=== PATIENT | female | born 1995 | race African-American/Black ===

== ENCOUNTER 2020-03-12 13:54 | Emergency (ER) | payer OTHER ==
--- NOTE | 2020-03-12 14:16 | ED Physician Documentation ---
PD HPI SKIN - Stated complaint Stated Complaint: LT ARMPIT PX - Chief complaint Chief Complaint: Wound - History obtained from History obtained from: Patient - History of Present Illness Timing - onset: How many days ago (several) Timing - duration: Days (several) Timing - details: Gradual onset, Still present Location: LUE Quality / character: Painful, Swelling. No: Draining Contributing factors: No: Insect bite /sting, Recent illness Similar symptoms before: Has not had sx before Review of Systems Constitutional: denies: Fever, Chills, Myalgias Nose: denies: Rhinorrhea / runny nose, Congestion Throat: denies: Sore throat Respiratory: denies: Cough Skin: reports: Lesions (just the single tender lump) Neurologic: denies: Focal weakness, Numbness PD PAST MEDICAL HISTORY - Past Medical History Past Medical History: No - Present Medications Home Medications: Ambulatory Orders Medication Instructions Recorded Confirmed Mupirocin 1 applic TP TID #15 g 03/12/20 Sulfamethox/Trimeth 800/160 1 each PO BID #14 tablet 03/12/20 [Bactrim Ds 800/160] - Allergies Allergies/Adverse Reactions: Allergies Allergy/AdvReac Type Severity Reaction Status Date / Time No Known Drug Allergies Allergy Verified 03/12/20 14:04 PD ED PE NORMAL - Vitals Vital signs reviewed: Yes - General General: Alert and oriented X 3, No acute distress, Well developed/nourished - Neck Neck: Supple, no meningeal sign, No adenopathy - Cardiac Cardiac: RRR, No murmur - Respiratory Respiratory: Clear bilaterally - Derm Derm: Normal color, Warm and dry - Extremities Extremities: Other (left axillary area with subcutaneous lump that is tender with fluctuance, redness and some soft tissue swelling around. It is about 3 cm diameter. Freely moving from underlying structures. ) - Neuro Neuro: No motor deficit, No sensory deficit Results - Vitals Vitals: Vital Signs - 24 hr 03/12/20 03/12/20 14:01 14:51 Temperature 36.9 C 36.9 C Heart Rate 75 72 Respiratory 18 16 Rate Blood Pressure 116/70 120/65 O2 Saturation 100 99 Oxygen O2 Source Room air Procedures - Abscess I&D (location) left axillary Preparation: Lidocaine 1%, With epi Incision: Incised with scalpel, Purulent drainage, Irrigated. No: Packed, Culture obtained Other: Pt tolerated well, Dressing applied, Antibiotic prescribed PD MEDICAL DECISION MAKING - ED course Complexity details: considered differential (simple axillary abscess with I&D. ), d/w patient Departure - Departure Disposition: 01 Home, Self Care Clinical Impression: Axillary abscess Condition: Stable Record reviewed to determine appropriate education?: Yes Instructions: ED Abscess IandD Follow-Up: LESLIE LORENZ DO [Primary Care Provider] - Prescriptions: Sulfamethox/Trimeth 800/160 [Bactrim Ds 800/160] 1 each PO BID #14 tablet Mupirocin 1 applic TP TID #15 g Comments: Warm moist compresses to the area and try to promote drainage by squeezing gently around the borders of the abscess. The incision hole should heal up on its own within 2 to 3 days. Continue some ibuprofen to 3 times a day and add Tylenol if needed for pain. Bactrim antibiotic twice daily for a week for the residual infection around the site. Mupirocin antibiotic ointment 2-3 times daily to the area as well. Recheck if not improving well over the next several days and resolved within the week. It should be a lot less painful with the pressure out and as the infection clears. The swelling around it may take a little bit longer to fully resolved. Discharge Date/Time: 03/12/20 14:52
[2020-03-12] MEDS ORDERED: HYDROcod/ACETAM 5/325 MG TABLET PO STA (14:27)
[2020-03-12] MEDS ORDERED: SULFAMETH/TRIMETH DS 800/160 MG TABLET PO STA (14:27)
[2020-03-12 14:52] VITALS: BP 120/65
== END 2020-03-12 14:52 | disposition home or self-care (01) ==
LOC: ED 13:54
DX: L02.412 Cutaneous abscess of left axilla (principal)
CPT/HCPCS: 10060; 99282; 99284; A9270

== ENCOUNTER 2020-06-22 20:47 | Emergency (ER) | payer OTHER ==
[2020-06-22 21:20] LABS: BILIRUBIN,URINE NEGATIVE (NEGATIVE); GLUCOSE, URINE (UA) NEGATIVE (NEGATIVE); KETONES,URINE (UA) NEGATIVE (NEGATIVE); LEUKOCYTE ESTERASE, URINE NEGATIVE (NEGATIVE); NITRITE,URINE NEGATIVE (NEGATIVE); OCCULT BLOOD,URINE NEGATIVE (NEGATIVE); PH,URINE 6.5 PH (5.0-7.5); PROTEIN,URINE NEGATIVE (NEGATIVE); UROBILINOGEN,URINE 0.2 (NORMAL) E.U./dL (NORMAL)
[2020-06-22 21:23] LABS: CLARITY,URINE CLEAR (CLEAR); HCG UR QUAL NEGATIVE
[2020-06-22] MEDS ORDERED: ONDANSETRON 4 MG/2 ML VIAL IVP STA (21:38)
[2020-06-22] MEDS ORDERED: SODIUM CHLORIDE 0.9% 1,000 ML IV STA (21:38)
--- NOTE | 2020-06-22 21:53 | ED Physician Documentation ---
PD HPI ABD PAIN - Stated complaint Stated Complaint: NAUSEA/CONSTIPATION/BACK PAIN - Chief complaint Chief Complaint: Abd Pain - History obtained from History obtained from: Patient - History of Present Illness Timing - onset: How many days ago (3) Timing - details: Abrupt onset, Waxing and waning Quality: Cramping Location: All over / everywhere Radiation: No: Chest, , Lower back, Left flank, Left shoulder, Other, Right flank, Right shoulder, Upper back Associated symptoms: Nausea, Constipation - Additional information Additional information: Several days ago she ate leftover food which she thinks caused her to be nauseated. She has not vomited. Additionally, she has not had a normal bowel movement in several days either. She was able to strain and pass a small amount of hard stool. It was nonbloody. She denies a history of intra-abdominal surgeries. She believes she has had a low-grade fever at times. She is not aware of any ill contacts. She is sexually active and has had unprotected intercourse. She is not sure if she is . She has had ovarian cysts in the past but otherwise denies any gynecologic concerns. She has never been before. She reports symptoms consistent with urinary frequency and urgency.Reports that she is currently under quarantine at the [facility]. They have tested her for Covid and she is awaiting the result. Review of Systems Constitutional: reports: Fever, Chills, Sweats GI: reports: Abdominal Pain, Nausea, Constipation. denies: Abdominal Swelling, Vomiting, Diarrhea, Hematemesis, Bloody / black stool, Reviewed and negative, Other : reports: Frequency, Hesitancy. 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 : None HEENT: None Psych: None Musculoskeletal: None Derm: None - Past Surgical History Past Surgical History: No - Present Medications Home Medications: Ambulatory Orders Medication Instructions Recorded Confirmed Mupirocin 1 applic TP TID #15 g 03/12/20 Sulfamethox/Trimeth 800/160 1 each PO BID #14 tablet 03/12/20 [Bactrim Ds 800/160] Ondansetron Odt [Zofran Odt] 4 mg TL Q6H PRN #10 tablet 06/22/20 - Allergies Allergies/Adverse Reactions: Allergies Allergy/AdvReac Type Severity Reaction Status Date / Time No Known Drug Allergies Allergy Verified 03/12/20 14:04 - Social History Does the pt smoke?: No Smoking Status: Never smoker Does the pt drink ETOH?: Yes Does the pt have substance abuse?: No - Immunizations Immunizations are current?: Yes - POLST Patient has POLST: No PD ED PE NORMAL - Vitals Vital signs reviewed: Yes - General General: No acute distress - HEENT HEENT: PERRL, Pharynx benign - Neck Neck: Supple, no meningeal sign - Cardiac Cardiac: RRR, No murmur, No gallop, No rub - Respiratory Respiratory: No respiratory distress, Clear bilaterally - Abdomen Abdomen: Normal bowel sounds, Soft, Non tender, Non distended, No organomegaly - Derm Derm: Warm and dry - Extremities Extremities: No deformity - Neuro Neuro: Alert and oriented X 3 - Psych Psych: Normal mood, Normal affect Results - Vitals Vitals: Vital Signs - 24 hr 06/22/20 06/22/20 06/22/20 20:50 21:11 22:14 Temperature 36.6 C 36.7 C Heart Rate 65 72 65 Respiratory 16 16 16 Rate Blood Pressure 121/64 125/75 116/79 O2 Saturation 97 100 65 L Oxygen O2 Source Room air - Labs Labs: Laboratory Tests 06/22/20 06/22/20 06/22/20 20:59 20:59 21:50 WBC 9.8 RBC 3.88 L Hgb 12.1 Hct 36.6 L MCV 94.3 MCH 31.2 H MCHC 33.1 RDW 12.9 Plt Count 384 MPV 10.2 Neut # (Auto) 5.5 Lymph # (Auto) 3.1 Marshall # (Auto) 0.9 Eos # (Auto) 0.2 Baso # (Auto) 0.1 Absolute Nucleated RBC 0.00 Nucleated RBC % 0.0 Sodium Potassium Chloride Carbon Dioxide Anion Gap BUN Creatinine Estimated GFR (MDRD) Glucose Calcium Total Bilirubin AST ALT Alkaline Phosphatase Total Protein Albumin Globulin Albumin/Globulin Ratio Lipase Urine Color YELLOW Urine Clarity CLEAR Urine pH 6.5 Ur Specific [place] 1.025 1.025 Urine Protein NEGATIVE Urine Glucose (UA) NEGATIVE Urine Ketones NEGATIVE Urine Occult Blood NEGATIVE Urine Nitrite NEGATIVE Urine Bilirubin NEGATIVE Urine Urobilinogen 0.2 (NORMAL) Ur Leukocyte Esterase NEGATIVE Ur Microscopic Review NOT INDICATED Urine Culture Comments NOT INDICATED Urine HCG, Qual NEGATIVE 06/22/20 21:50 WBC RBC Hgb Hct MCV MCH MCHC RDW Plt Count MPV Neut # (Auto) Lymph # (Auto) Marshall # (Auto) Eos # (Auto) Baso # (Auto) Absolute Nucleated RBC Nucleated RBC % Sodium 137 Potassium 3.7 Chloride 105 Carbon Dioxide 25 Anion Gap 7.0 BUN 13 Creatinine 0.7 Estimated GFR (MDRD) 125 Glucose 108 H Calcium 8.9 Total Bilirubin 0.5 AST 20 ALT 16 Alkaline Phosphatase 69 Total Protein 7.2 Albumin 3.6 Globulin 3.6 Albumin/Globulin Ratio 1.0 Lipase 36 Urine Color Urine Clarity Urine pH Ur Specific [place] Urine Protein Urine Glucose (UA) Urine Ketones Urine Occult Blood Urine Nitrite Urine Bilirubin Urine Urobilinogen Ur Leukocyte Esterase Ur Microscopic Review Urine Culture Comments Urine HCG, Qual PD MEDICAL DECISION MAKING - ED course ED course: The patient reported improvement in her symptoms after receiving IV Zofran and n ormal saline. We discussed the potential benefits and risks of CT and x-ray imaging. After this discussion, the patient declined to have these performed. She acknowledges the risk of a missed or erroneous diagnosis. However, she is feeling much better and is also reassured that she is not . We discussed home treatments for constipation. I suggested the use of Harriet-Colace, increased fluids and fiber in her diet and consideration of an OTC enema as needed. [facility] Departure - Departure Disposition: 01 Home, Self Care Clinical Impression: Dysuria, Nausea Constipation Qualifiers: Constipation type: unspecified constipation type Qualified Code(s): K59.00 - Constipation, unspecified Condition: Stable Record reviewed to determine appropriate education?: Yes Instructions: ED Constipation Ch Follow-Up: LESLIE LORENZ DO [Primary Care Provider] - Within 3 Days Prescriptions: Ondansetron Odt [Zofran Odt] 4 mg TL Q6H PRN #10 tablet PRN Reason: Nausea / Vomiting
[2020-06-22 21:56] LABS: BASOPHILS # (AUTO) 0.1 10^3/uL (0.0-0.1); BASOPHILS % (AUTO) 0.8 %; EOSINOPHILS # (AUTO) 0.2 10^3/uL (0.0-0.7); EOSINOPHILS % (AUTO) 1.6 %; HGB - HEMOGLOBIN 12.1 g/dL (12.0-16.0); LYMPHOCYTES # (AUTO) 3.1 10^3/uL (1.5-3.5); LYMPHOCYTES % (AUTO) 31.9 %; MEAN CORPUSCULAR HEMOGLOBIN 31.2 pg (27.0-31.0); MEAN CORPUSCULAR HGB CONC 33.1 g/dL (32.0-36.0); MEAN CORPUSCULAR VOLUME 94.3 fL (81.0-99.0); MEAN PLATELET VOLUME 10.2 fL (7.9-10.8); MONOCYTES # (AUTO) 0.9 10^3/uL (0.0-1.0); MONOCYTES % (AUTO) 8.8 %; NEUTROPHILS # (AUTO) 5.5 10^3/uL (1.5-6.6); NEUTROPHILS % (AUTO) 56.5 %; PLT - PLATELET COUNT 384 10^3/uL (130-450); RED BLOOD COUNT 3.88 10^6/uL (4.20-5.40); RED CELL DISTRIBUTION WIDTH 12.9 % (12.0-15.0); WHITE BLOOD COUNT 9.8 x10^3/uL (4.8-10.8)
[2020-06-22 22:09] LABS: ALBUMIN 3.6 g/dL (3.2-5.5); BILIRUBIN,TOTAL 0.5 mg/dL (0.2-1.0); CALCIUM 8.9 mg/dL (8.5-10.3); CREATININE 0.7 mg/dL (0.4-1.0); TOTAL PROTEIN 7.2 g/dL (6.7-8.2)
[2020-06-22 22:15] VITALS: BP 116/79
== END 2020-06-22 22:42 | disposition home or self-care (01) ==
LOC: ED 20:47
DX: R30.0 Dysuria (principal); R11.0 Nausea; K59.00 Constipation, unspecified
CPT/HCPCS: 36415; 80053; 81001; 81003; 81025; 83690; 85025; 87086; 96374; 99284

== ENCOUNTER 2020-07-07 14:46 | Emergency (ER) | payer OTHER ==
--- NOTE | 2020-07-07 15:11 | ED Physician Documentation ---
History of Present Illness - Stated complaint Stated Complaint: FLU SX - History obtained from History obtained from: Patient - History of Present Illness Timing: Today Pain level max: 0 Pain level now: 0 - Additonal information Additional information: 25-year-old female presents to the emergency department stating that she is concerned that she was possibly exposed to Covid. She states that she has seasonal allergies and has had some nasal congestion. No fevers. No cough. No chills. No chest pain. No abdominal pain. No nausea or vomiting. Nothing makes it better or worse. 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 : None HEENT: None Psych: None Musculoskeletal: None Derm: None - Past Surgical History Past Surgical History: No - Present Medications Home Medications: Ambulatory Orders Medication Instructions Recorded Confirmed Mupirocin 1 applic TP TID #15 g 03/12/20 Sulfamethox/Trimeth 800/160 1 each PO BID #14 tablet 03/12/20 [Bactrim Ds 800/160] Ondansetron Odt [Zofran Odt] 4 mg TL Q6H PRN #10 tablet 06/22/20 - Allergies Allergies/Adverse Reactions: Allergies Allergy/AdvReac Type Severity Reaction Status Date / Time No Known Drug Allergies Allergy Verified 07/07/20 15:14 - Social History Does the pt smoke?: No Smoking Status: Never smoker Does the pt drink ETOH?: Yes Does the pt have substance abuse?: No - Immunizations Immunizations are current?: Yes - POLST Patient has POLST: No PD ED PE NORMAL - Vitals Vital signs reviewed: Yes - General General: Alert and oriented X 3, No acute distress - HEENT HEENT: Moist mucous membranes - Neck Neck: Supple, no meningeal sign - Respiratory Respiratory: No respiratory distress - Derm Derm: Warm and dry - Neuro Neuro: Alert and oriented X 3 - Psych Psych: Normal mood, Normal affect Results - Vitals Vitals: Vital Signs - 24 hr 07/07/20 15:05 Temperature 37.2 C Heart Rate 86 Respiratory 17 Rate Blood Pressure 144/92 H O2 Saturation 98 Oxygen O2 Source Room air PD MEDICAL DECISION MAKING - ED course Complexity details: considered differential, d/w patient ED course: Covid testing was performed. Patient is very well-appearing, nontoxic. Afebrile. No hypoxia. No respiratory distress. We will have her follow-up with her doctor for further care as needed. She will self quarantine pending results of her Covid test. Patient counseled regarding signs and symptoms for which I believe and urgent re-evaluation would be necessary. Patient with good understanding of and agreement to plan and is comfortable going home at this time This document was made in part using voice recognition software. While efforts are made to proofread this document, sound alike and grammatical errors may occur. Departure - Departure Disposition: 01 Home, Self Care Clinical Impression: URI (upper respiratory infection) Qualifiers: URI type: unspecified viral URI Qualified Code(s): J06.9 - Acute upper respiratory infection, unspecified Condition: Good Instructions: ED URI Viral Follow-Up: LESLIE LORENZ DO [Primary Care Provider] - As Needed Comments: You have a Covid test pending. You need to self quarantine until the result is done and negative. Do not leave your house. Do not get near anybody. The results should be done in 48 to 72 hours. We will call with a positive result, the fastest way to get a negative result for confirmation though is to go to the hospital website at [email or web address], click on the my [facility] tab and sign up for the patient portal. If any friends or family get sick and would like to have a Covid test done, but do not have signs or symptoms that would necessitate being hospitalized, we encourage testing through our coronavirus swabbing station, call [phone] to schedule an appointment.
[2020-07-07 15:14] VITALS: BP 144/92
== END 2020-07-07 15:27 | disposition home or self-care (01) ==
LOC: ED 14:46
DX: U07.1 COVID-19 (principal); J06.9 Acute upper respiratory infection, unspecified
CPT/HCPCS: 99282; 99283

== ENCOUNTER 2020-09-18 20:04 | Emergency (ER) | payer OTHER ==
--- NOTE | 2020-09-18 20:19 | ED Physician Documentation ---
PD HPI HEAD INJURY - Stated complaint Stated Complaint: HEAD INJ - Chief complaint Chief Complaint: Trauma Hd/Nk - History obtained from History obtained from: Patient - History of Present Illness Mechanism of head injury: Fell Where head injury occurred: Home Timing - onset: How many days ago (5) Location of injury: Left, Back Quality of pain: Throbbing, Aching Associated symptoms: AMS (felt briefly dazed at the time, but has had continued tenderness of scalp, some headache left side, and feeling of lightheadedness, forgetfulness. Thought symptoms would dissipate in a day or two, but has continued. Called Nurse advise line and advised to come to ER.). No: LOC Symptoms improve with: Rest, Other (has not taken any meds for this.) Symptoms worsen with: Palpation Contributing factors: No: Anticoagulated Similar symptoms before: Has not had sx before Recently seen: Not recently seen Review of Systems Constitutional: denies: Fever, Myalgias Nose: denies: Rhinorrhea / runny nose, Congestion Throat: denies: Sore throat Respiratory: denies: Cough GI: denies: Nausea, Vomiting Neurologic: reports: Confused (forgetful and trouble concentrating at times), Headache. 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 : None HEENT: None Psych: None Musculoskeletal: None Derm: None - Past Surgical History Past Surgical History: No - Present Medications Home Medications: Ambulatory Orders Medication Instructions Recorded Confirmed HYDROcod/ACETAM 5/325 [Ell[place] 5/325] 1 ea PO Q6H PRN #10 tablet 09/18/20 Ibuprofen [Motrin] 600 mg PO TID PRN #20 tab 09/18/20 - Allergies Allergies/Adverse Reactions: Allergies Allergy/AdvReac Type Severity Reaction Status Date / Time No Known Drug Allergies Allergy Verified 09/18/20 20:12 - Social History Does the pt smoke?: No Smoking Status: Never smoker Does the pt drink ETOH?: Yes Does the pt have substance abuse?: No - Immunizations Immunizations are current?: Yes - POLST Patient has POLST: No Results - Vitals Vitals: Vital Signs - 24 hr 09/18/20 09/18/20 20:11 22:09 Temperature 37 C 36.8 C Heart Rate 74 67 Respiratory 18 16 Rate Blood Pressure 120/71 135/70 H O2 Saturation 100 100 Oxygen O2 Source Room air - Rads (name of study) head CT Radiology: Prelim report reviewed (no acute process. ), See rad report PD MEDICAL DECISION MAKING - ED course Complexity details: considered differential (Sounds mild concussive symptoms. Given the duration of 5 days now, I would feel the patient fits for criteria for CT scan. Otherwise can also try some NSAIDs and medicine for pain.), d/w patient Departure - Departure Disposition: 01 Home, Self Care Clinical Impression: Accidental fall Qualifiers: Encounter type: initial encounter Qualified Code(s): W19.XXXA - Unspecified fal l, initial encounter Head contusion Qualifiers: Encounter type: initial encounter Contusion of head detail: scalp Qualified Code(s): S00.03XA - Contusion of scalp, initial encounter Mild concussion Qualifiers: Encounter type: initial encounter Loss of consciousness presence/duration: without LOC Qualified Code(s): S06.0X0A - Concussion without loss of consciousness, initial encounter Condition: Stable Record reviewed to determine appropriate education?: Yes Instructions: ED Concussion Follow-Up: LESLIE LORENZ DO [Primary Care Provider] - Prescriptions: Ibuprofen [Motrin] 600 mg PO TID PRN #20 tab PRN Reason: Pain HYDROcod/ACETAM 5/325 [Ellsworth 5/325] 1 ea PO Q6H PRN #10 tablet PRN Reason: Pain Comments: Your CT scan does not show any signs of bleeding or fractures tumors or swelling. Your symptoms would be consistent with a mild concussion. Typically this only lasts for a couple of days with a mild injury though at times it can even be a few weeks in duration. Light activity is okay. Use some ibuprofen with food 3 times a day for the next 3 to 5 days. To that add Tylenol every 4-6 hours if needed for pain. Add hydrocodone if needed for worse pain. Recheck if still not improved over the next 3 to 4 days. Discharge Date/Time: 09/18/20 22:14
[2020-09-18] MEDS ORDERED: KETOROLAC 30 MG/ML VIAL IM STA (20:44)
[2020-09-18] MEDS ORDERED: ACETAMINOPHEN 325 MG TABLET PO STA (21:31)
[2020-09-18] MEDS ORDERED: HYDROcod/ACET 5/325 Prepack 4 PO STA (21:32)
--- NOTE | 2020-09-18 21:42 | CT Report ---
PROCEDURE: HEAD WO INDICATIONS: head injury 5 days ago; persistent headache TECHNIQUE: Noncontrast 4.5 mm thick angled axial sections acquired from the foramen magnum to the vertex. For r adiation dose reduction, the following was used: automated exposure control, adjustment of mA and/or kV according to patient size. COMPARISON: None. FINDINGS: Image quality: Excellent. CSF spaces: Basal cisterns are patent. No extra-axial fluid collections. Ventricles are normal in size and shape. Brain: No midline shift. No intracranial masses or hemorrhage. Dickinson-white matter interface is norm al. Skull and face: Calvarium and visualized facial bones are intact, without suspicious lesions. Sinuses: Visualized sinuses and mastoids are clear. IMPRESSION: 1. No acute intracranial process. Reviewed by: Holly Bailey MD on 09/18/2020 9:40 PM PST Approved by: Holly Bailey MD on 09/18/2020 9:40 PM [facility] Station ID: [id number]
[2020-09-18 22:09] VITALS: BP 135/70
== END 2020-09-18 22:14 | disposition home or self-care (01) ==
LOC: ED 20:04
DX: S06.0X0A Concussion without loss of consciousness, initial encounter (principal); S00.03XA Contusion of scalp, initial encounter; W18.30XA Fall on same level, unspecified, initial encounter; Y92.009 Unspecified place in unspecified non-institutional (private) residence as the place of occurrence of the external cause
CPT/HCPCS: 70450; 96372; 99284; A9270

== ENCOUNTER 2020-12-31 08:00 | Outpatient (CLI) | payer OTHER ==
[2021-01-01 10:05] LABS: MUDS CUTOFF CONCENTRATIONS CUTOFF CONC BELOW:
[2021-01-01 10:09] LABS: BILIRUBIN,URINE NEGATIVE (NEGATIVE); GLUCOSE, URINE (UA) NEGATIVE (NEGATIVE); KETONES,URINE (UA) NEGATIVE (NEGATIVE); LEUKOCYTE ESTERASE, URINE NEGATIVE (NEGATIVE); NITRITE,URINE NEGATIVE (NEGATIVE); OCCULT BLOOD,URINE NEGATIVE (NEGATIVE); PH,URINE 6.5 PH (5.0-7.5); PROTEIN,URINE NEGATIVE (NEGATIVE); UROBILINOGEN,URINE 0.2 (NORMAL) E.U./dL (NORMAL)
[2021-01-01 10:10] LABS: CLARITY,URINE SL. CLOUDY (CLEAR)
[2021-01-01 10:14] LABS: AMORPHOUS SEDIMENT,UR Marked /LPF; BACTERIA,URINE Rare /HPF (None Seen); RBC,URINE 0-5 /HPF (0-5); SQUAMOUS EPITHELIAL CELL,UR RARE Squamous (<= Few); WBC,URINE 0-3 /HPF (0-5)
[2021-01-01 10:31] LABS: AMPHETAMINE SCREEN,URINE NEGATIVE (NEGATIVE); BARBITURATE SCREEN,UR NEGATIVE (NEGATIVE); BENZODIAZEPINES SCREEN, URINE NEGATIVE (NEGATIVE); COCAINE SCREEN URINE NEGATIVE (NEGATIVE); METHADONE SCREEN, URINE NEGATIVE (NEGATIVE); METHAMPHETAMINES SCREEN, URINE NEGATIVE (NEGATIVE); OPIATE SCREEN, URINE NEGATIVE (NEGATIVE); OXYCODONE SCREEN, URINE NEGATIVE (NEGATIVE); PROPOXYPHENE SCREEN, URINE NEGATIVE (NEGATIVE); THC CANNABINOID SCREEN, URINE NEGATIVE (NEGATIVE); TRICYCLIC ANTIDEPRESSANT,URINE NEGATIVE (NEGATIVE)
== END 2020-12-31 23:59 | disposition home or self-care (01) ==
LOC: LAB.R 08:00
PROVIDERS: ATTEND Obstetrics & Gynecology
DX: Z36.89 Encounter for other specified antenatal screening (principal)
CPT/HCPCS: 80306; 81001; 87086

== ENCOUNTER 2021-01-09 13:30 | Outpatient (CLI) | payer OTHER ==
--- NOTE | 2021-01-09 15:51 | Ultrasound Report ---
PROCEDURE: OB First Trimester w/TV INDICATIONS: test positive OUTSIDE/PRIOR DATING DATA: Last menstrual period (LMP): 11/11/2020. LMP-based estimated date of delivery (KIMBERLY): 08/18/2021. First dating scan (date and location): 01/09/2021,Te Estimated date of delivery (KIMBERLY) from first dating scan: 08/13/2021. TECHNIQUE: Real-time scanning was performed of the fetus and maternal pelvic organs, with image documentation. Endovaginal scanning was also performed to better visualize the fetus and maternal ovaries. COMPARISON: None available FINDINGS: Single live intrauterine with gestational sac containing pole. [place]-rump length caitlin ures 2.41 cm corresponding to a gestational age of 9 week 1 day. Small subchorionic or implantation b leed measures 1.7 x 3.2 x 1.0 cm. heart rate 175 bpm Measurement variability in dating: +/- 4 weeks by LMP, +/- 7 days by mean sac diameter (use before 6 weeks gestation if crown-rump length not able to be measured), +/- 5 days by crown-rump length (6-12 weeks gestation). Maternal organs: Ovaries 2.3 cm left corpus luteum cyst noted. Right ovary not visualized. Cervix me asures 4.9 cm in length. IMPRESSION: A single live intrauterine corresponding with a 9 week 1 day gestation. Small subchorionic or implantation bleed measures 1.7 x 3.2 cm Reviewed by: Moshe Canales MD on 01/09/2021 2:49 PM [facility] Approved by: Moshe Canales MD on 01/09/2021 2:49 PM [facility] Station ID: [id number]
== END 2021-01-09 13:31 | disposition home or self-care (01) ==
LOC: DI 13:30
PROVIDERS: ATTEND Obstetrics & Gynecology
DX: O20.8 Other hemorrhage in early pregnancy (principal); Z3A.09 9 weeks gestation of pregnancy; Z36.89 Encounter for other specified antenatal screening
CPT/HCPCS: 36415; 85025; 86592; 86762; 86787; 86803; 86850; 86900; 86901; 87340; 87389

== ENCOUNTER 2021-01-09 14:35 | Outpatient (CLI) | payer OTHER ==
[2021-01-09 15:06] LABS: BASOPHILS # (AUTO) 0.1 10^3/uL (0.0-0.1); BASOPHILS % (AUTO) 0.5 %; EOSINOPHILS # (AUTO) 0.1 10^3/uL (0.0-0.7); EOSINOPHILS % (AUTO) 0.7 %; HCT - HEMATOCRIT 33.5 % (37.0-47.0); HGB - HEMOGLOBIN 11.3 g/dL (12.0-16.0); LYMPHOCYTES # (AUTO) 2.8 10^3/uL (1.5-3.5); LYMPHOCYTES % (AUTO) 21.1 %; MEAN CORPUSCULAR HEMOGLOBIN 30.2 pg (27.0-31.0); MEAN CORPUSCULAR HGB CONC 33.7 g/dL (32.0-36.0); MEAN CORPUSCULAR VOLUME 89.6 fL (81.0-99.0); MEAN PLATELET VOLUME 9.7 fL (7.9-10.8); MONOCYTES # (AUTO) 0.8 10^3/uL (0.0-1.0); MONOCYTES % (AUTO) 5.8 %; NEUTROPHILS # (AUTO) 9.4 10^3/uL (1.5-6.6); NEUTROPHILS % (AUTO) 71.5 %; PLT - PLATELET COUNT 380 10^3/uL (130-450); RED BLOOD COUNT 3.74 10^6/uL (4.20-5.40); RED CELL DISTRIBUTION WIDTH 13.2 % (12.0-15.0); WHITE BLOOD COUNT 13.2 x10^3/uL (4.8-10.8)
[2021-01-10 12:50] LABS: HEPATITIS B SURFACE ANTIGEN NON-REACTIVE (NON-REACTIVE); HEPATITIS C ANTIBODY NON-REACTIVE (NON-REACTIVE)
[2021-01-10 15:16] LABS: HIV AG/AB 4TH GEN NON-REACTIVE (NON-REACTIVE)
== END 2021-01-09 14:36 | disposition home or self-care (01) ==
LOC: LAB 14:35
PROVIDERS: ATTEND Obstetrics & Gynecology
DX: Z36.89 Encounter for other specified antenatal screening (principal)
CPT/HCPCS: 36415; 85025; 86592; 86762; 86787; 86803; 86850; 86900; 86901; 87340; 87389

== ENCOUNTER 2021-01-15 10:11 | Outpatient (CLI) | payer OTHER ==
[2021-01-15 11:41] LABS: % IRON SATURATION 23 % (20-50); IRON 102 ug/dL (28-170); TOTAL IRON BINDING CAPACITY 435 ug/dL (250-450); TRANSFERRIN 311 mg/dL (192-382)
== END 2021-01-15 10:12 | disposition home or self-care (01) ==
LOC: LAB 10:11
PROVIDERS: ATTEND Obstetrics & Gynecology
DX: O99.019 Anemia complicating pregnancy, unspecified trimester (principal)
CPT/HCPCS: 36415; 81599; 82728; 83020; 83540; 84466; 85014; 85018; 85041; 85660

== ENCOUNTER 2021-01-25 08:00 | Outpatient (CLI) | payer OTHER ==
[2021-01-25 21:21] LABS: CHLAMYDIA TRACHOMATIS DNA NEGATIVE (NEGATIVE); NEISSERIA GONORRHOEAE DNA NEGATIVE (NEGATIVE); TRICHOMONAS VAGINALIS DNA NEGATIVE (NEGATIVE)
== END 2021-01-25 23:59 | disposition home or self-care (01) ==
LOC: LAB.WC 08:00
PROVIDERS: ATTEND Obstetrics & Gynecology
DX: Z11.3 Encounter for screening for infections with a predominantly sexual mode of transmission (principal)
CPT/HCPCS: 87491; 87591; 87661

== ENCOUNTER 2021-02-25 16:13 | Emergency (ER) | payer OTHER ==
--- NOTE | 2021-02-25 18:35 | ED Physician Documentation ---
History of Present Illness - Stated complaint Stated Complaint: NO MOVEMENT - Chief complaint Chief Complaint: General - History obtained from History obtained from: Patient (G1 at 15 weeks. She had been feeling the baby move but has not felt it in about a week and it worries her. No bleeding or fluid loss. 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: Yes Does the pt have substance abuse?: No - Immunizations Immunizations are current?: Yes - POLST Patient has POLST: No PD ED PE NORMAL - Vitals Vital signs reviewed: Yes - General General: Alert and oriented X 3, No acute distress - Abdomen Abdomen: Other (Bedside ultrasound shows single live intrauterine with heart rate of about 150 and positive motion.) - Neuro Neuro: Alert and oriented X 3, Normal speech Results - Vitals Vitals: Vital Signs - 24 hr 02/25/21 02/25/21 16:36 17:10 Temperature 37.2 C 37.2 C Heart Rate 92 92 Respiratory 16 16 Rate Blood Pressure 121/74 121/74 O2 Saturation 99 99 Oxygen O2 Source Room air Departure - Departure Disposition: 01 Home, Self Care Clinical Impression: , normal first Qualifiers: Trimester: first trimester Qualified Code(s): Z34.01 - Encounter for supervision of normal first , first trimester Condition: Good Record reviewed to determine appropriate education?: Yes Instructions: ED Preg Established Normal Sxs
[2021-02-25 18:59] VITALS: BP 116/68
== END 2021-02-25 19:03 | disposition home or self-care (01) ==
LOC: ED 16:13
DX: O36.8120 Decreased fetal movements, second trimester, not applicable or unspecified (principal); Z3A.15 15 weeks gestation of pregnancy
CPT/HCPCS: 99281

== ENCOUNTER 2021-03-10 06:40 | Emergency (ER) | payer OTHER ==
--- NOTE | 2021-03-10 07:19 | ED Physician Documentation ---
History of Present Illness - Stated complaint Stated Complaint: ABD PX - Chief complaint Chief Complaint: Abd Pain - History obtained from History obtained from: Patient - History of Present Illness Timing: Last night Pain level max: 8 Pain level now: 8 - Additonal information Additional information: Patient is a 26-year-old female, 1 para 0, approximately 17 weeks who presents with right-sided pelvic pain for the past 12 hours. Described as sharp. Waxes and wanes. No vaginal bleeding or discharge. No urinary symptoms. No nausea or vomiting. No diarrhea or constipation. Nothing makes it better or worse. She states similar to when she had ovarian cysts prior to being . Has not taken anything for the pain. She did discuss the case with the on-call OB physician who recommended evaluation in the emergency department. 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: Yes Does the pt have substance abuse?: No - Immunizations Immunizations are current?: Yes - POLST Patient has POLST: No PD ED PE NORMAL - Vitals Vital signs reviewed: Yes - General General: Alert and oriented X 3, No acute distress, Well developed/nourished - HEENT HEENT: PERRL, Moist mucous membranes - Neck Neck: Supple, no meningeal sign - Cardiac Cardiac: RRR, Strong equal pulses - Respiratory Respiratory: No respiratory distress, Clear bilaterally - Abdomen Abdomen: Soft, Non distended, Other (Minimal tenderness right low pelvic area. No tenderness at McBurney's point or higher. No periumbilical tenderness. No peritoneal signs) - Back Back: No CVA TTP, No spinal TTP - Derm Derm: Warm and dry, No rash - Extremities Extremities: No edema - Neuro Neuro: Alert and oriented X 3 - Psych Psych: Normal mood, Normal affect Results - Vitals Vitals: Vital Signs - 24 hr 03/10/21 03/10/21 03/10/21 06:46 06:48 09:13 Temperature 36.5 C 36.5 C Heart Rate 84 84 64 Respiratory 16 16 18 Rate Blood Pressure 115/88 H 115/88 H 114/66 O2 Saturation 99 99 100 Oxygen O2 Source Room air - Labs Labs: Laboratory Tests 03/10/21 03/10/21 03/10/21 07:21 07:21 07:38 WBC 13.1 H RBC 3.52 L Hgb 11.0 L Hct 32.9 L MCV 93.5 MCH 31.3 H MCHC 33.4 RDW 13.7 Plt Count 349 MPV 9.8 Neut # (Auto) 9.8 H Lymph # (Auto) 2.3 [place] # (Auto) 0.7 Eos # (Auto) 0.1 Baso # (Auto) 0.1 Absolute Nucleated RBC 0.00 Nucleated RBC % 0.0 Sodium 136 Potassium 3.9 Chloride 104 Carbon Dioxide 24 Anion Gap 8.0 BUN 8 Creatinine 0.5 Estimated GFR (MDRD) 182 Glucose 88 Calcium 9.1 Total Bilirubin 0.4 AST 16 ALT < 10 L Alkaline Phosphatase 68 Total Protein 6.8 Albumin 3.2 Globulin 3.6 Albumin/Globulin Ratio 0.9 L Lipase 30 Urine Color YELLOW Urine Clarity CLEAR Urine pH 7.5 Ur Specific Peck 1.020 Urine Protein NEGATIVE Urine Glucose (UA) NEGATIVE Urine Ketones NEGATIVE Urine Occult Blood NEGATIVE Urine Nitrite NEGATIVE Urine Bilirubin NEGATIVE Urine Urobilinogen 0.2 (NORMAL) Ur Leukocyte Esterase NEGATIVE Ur Microscopic Review NOT INDICATED Urine Culture Comments NOT INDICATED - Rads (name of study) OB US Radiology: Prelim report reviewed, Other (Report from dental laboratory technician. Positive IUP, normal heart rate and good movement. Anterior placenta. No other acute abnormalities.) PD MEDICAL DECISION MAKING - ED course Complexity details: reviewed results, re-evaluated patient, considered differential, d/w patient ED course: Patient is well-appearing, nontoxic. Afebrile. Does not tender near McBurney's point or higher in the abdomen. Pain is very much low pelvis. Possible round ligament pain? Her white blood cell count is stable from her prior visit 2 months ago. No fevers. Normal appetite. No peritoneal signs. Appendicitis precautions given at bedside. Discussed the case with Dr. Tiwari, OB on-call who recommends follow-up with the patient's OB. Patient counseled regarding signs and symptoms for which I believe and urgent re-evaluation would be necessary. Patient with good understanding of and agreement to plan and is comfortable going home at this time This document was made in part using voice recognition software. While efforts are made to proofread this document, sound alike and grammatical errors may occur. Departure - Departure Disposition: 01 Home, Self Care Clinical Impression: Round ligament pain Pelvic pain affecting Qualifiers: Trimester: second trimester Qualified Code(s): O26.892 - Other specified related conditions, second trimester Condition: Good Instructions: Preg 2nd Trimester Follow-Up: DAX GARDUNO MD [Primary Care Provider] - Within 3 Days Comments: Follow-up with your OB within 3 days for a recheck. Return if you worsen. You can use Tylenol as needed for pain. Your ultrasound and laboratory testing did not reveal any acute abnormalities today.
[2021-03-10 07:42] LABS: BASOPHILS # (AUTO) 0.1 10^3/uL (0.0-0.1); BASOPHILS % (AUTO) 0.5 %; EOSINOPHILS # (AUTO) 0.1 10^3/uL (0.0-0.7); HCT - HEMATOCRIT 32.9 % (37.0-47.0); LYMPHOCYTES # (AUTO) 2.3 10^3/uL (1.5-3.5); LYMPHOCYTES % (AUTO) 17.6 %; MEAN CORPUSCULAR HEMOGLOBIN 31.3 pg (27.0-31.0); MEAN CORPUSCULAR HGB CONC 33.4 g/dL (32.0-36.0); MEAN CORPUSCULAR VOLUME 93.5 fL (81.0-99.0); MEAN PLATELET VOLUME 9.8 fL (7.9-10.8); MONOCYTES # (AUTO) 0.7 10^3/uL (0.0-1.0); MONOCYTES % (AUTO) 5.7 %; NEUTROPHILS # (AUTO) 9.8 10^3/uL (1.5-6.6); NEUTROPHILS % (AUTO) 74.5 %; PLT - PLATELET COUNT 349 10^3/uL (130-450); RED BLOOD COUNT 3.52 10^6/uL (4.20-5.40); RED CELL DISTRIBUTION WIDTH 13.7 % (12.0-15.0); WHITE BLOOD COUNT 13.1 x10^3/uL (4.8-10.8)
[2021-03-10 07:49] LABS: BILIRUBIN,URINE NEGATIVE (NEGATIVE); GLUCOSE, URINE (UA) NEGATIVE (NEGATIVE); KETONES,URINE (UA) NEGATIVE (NEGATIVE); LEUKOCYTE ESTERASE, URINE NEGATIVE (NEGATIVE); NITRITE,URINE NEGATIVE (NEGATIVE); OCCULT BLOOD,URINE NEGATIVE (NEGATIVE); PH,URINE 7.5 PH (5.0-7.5); PROTEIN,URINE NEGATIVE (NEGATIVE); UROBILINOGEN,URINE 0.2 (NORMAL) E.U./dL (NORMAL)
[2021-03-10 07:51] LABS: ALBUMIN 3.2 g/dL (3.2-5.5); ALBUMIN/GLOBULIN RATIO 0.9 (1.0-2.2); ALKALINE PHOSPHATASE 68 IU/L (42-121); ALT ALANINE AMINOTRANSFERASE < 10 IU/L (10-60); AST ASPARTATE AMINOTRANSFERASE 16 IU/L (10-42); BILIRUBIN,TOTAL 0.4 mg/dL (0.2-1.0); BUN - BLOOD UREA NITROGEN 8 mg/dL (6-20); CALCIUM 9.1 mg/dL (8.5-10.3); CARBON DIOXIDE - CO2 24 mmol/L (21-32); CHLORIDE 104 mmol/L (101-111); CREATININE 0.5 mg/dL (0.4-1.0); GFR - MDRD 182 (>89); GLUCOSE 88 mg/dL (70-100); LIPASE 30 U/L (22-51); POTASSIUM 3.9 mmol/L (3.5-5.0); SODIUM 136 mmol/L (135-145); TOTAL PROTEIN 6.8 g/dL (6.7-8.2)
[2021-03-10 07:56] LABS: CLARITY,URINE CLEAR (CLEAR)
[2021-03-10 09:14] VITALS: BP 114/66
--- NOTE | 2021-03-10 09:32 | Ultrasound Report ---
PROCEDURE: OB 14+ Weeks INDICATIONS: R pelvic pain, 17 weeks OUTSIDE/PRIOR DATING DATA: Last menstrual period (LMP): 11/11/2020. LMP-based estimated date of delivery (KIMBERLY): 08/18/2021. First dating scan (date and location): 01/09/2021. Estimated date of delivery (KIMBERLY) from first dating scan: 08/13/2021. The below data below was generated using the ultrasound KIMBERLY of 08/13/2021 TECHNIQUE: Real-time scanning was performed of the fetus, with image documentation. COMPARISON: 01/09/2021 FINDINGS: General: A single live intrauterine gestation is present. Presentation: Breech Placenta: Placental position is anterior, without previa. Amniotic fluid index: 12.6 cm, within normal limits for gestational age. heart rate: 137 beats per minute. Maternal cervical canal: 5.5 cm long; normal length is 2.5 cm or more. The diaphragm stomach, and kidneys are unremarkable. The placental cord insertion is within nor mal limits. The urinary bladder is unremarkable. IMPRESSION: No significant abnormality is identified. Note: Concordant preliminary findings given by the hockey scout upon the completion of the examination to Dr. Anders at 9:06 AM on 03/10/2021. Reviewed by: Mynor Mesa MD on 03/10/2021 8:30 AM ANAID Approved by: Mynor Mesa MD on 03/10/2021 8:30 AM ANAID Station ID: [id number]
== END 2021-03-10 09:27 | disposition home or self-care (01) ==
LOC: ED 06:40
DX: O26.892 Other specified pregnancy related conditions, second trimester (principal); Z3A.17 17 weeks gestation of pregnancy
CPT/HCPCS: 36415; 80053; 81001; 81003; 83690; 85025; 87086; 99284

== ENCOUNTER 2021-03-30 17:11 | Outpatient (CLI) | payer OTHER ==
--- NOTE | 2021-03-31 11:02 | Ultrasound Report ---
PROCEDURE: OB Detailed Eval INDICATIONS: SUPERVISION OF NORMAL OUTSIDE/PRIOR DATING DATA: Last menstrual period (LMP): 11/11/2020. LMP-based estimated date of delivery (KIMBERLY): 08/18/2021. First dating scan (date and location): 01/09/2021. Estimated date of delivery (KIMBERLY) from first dating scan: 08/13/2021. TECHNIQUE: Real-time scanning was performed of the fetus, with image documentation and biometric measurements. Endovaginal scanning: No COMPARISON: None. FINDINGS: Examination is limited by body habitus. General: A single living intrauterine gestation is present. Presentation: Cephalic Placenta: Placental position is anterior, without previa. Amniotic fluid index: 15 cm heart rate: 147 beats per minute. biometrics: Biparietal diameter: 50 mm; 21 weeks 2 days Head circumference: 184 mm; 20 weeks 5 days Abdominal circumference: 163 mm; 21 weeks 2 days Femur length: 34 mm; 20 weeks 4 days Estimated gestational age from initial scan: 20 weeks 4 days Composite gestational age from present scan: 20 weeks 6 days Estimated weight and percentile: 389 g which is at the 67th percentile for gestational age Measurement variability in biometric dating: +/- 10 days from 12-20 weeks gestation, +/- 2 weeks from 20-30 weeks gestation, +/- 3 weeks at 30 weeks gestation or later. IMPRESSION: 1. Single living intrauterine gestation. 2. Appropriate interval growth. Reviewed by: Fannie Yuan MD on 03/31/2021 10:01 AM ANAID Approved by: Fannie Yuan MD on 03/31/2021 10:01 AM ANAID Station ID: [id number]
== END 2021-03-30 17:12 | disposition home or self-care (01) ==
LOC: DI 17:11
PROVIDERS: ATTEND Obstetrics & Gynecology
DX: Z34.92 Encounter for supervision of normal pregnancy, unspecified, second trimester (principal); Z3A.20 20 weeks gestation of pregnancy

== ENCOUNTER 2021-04-03 07:39 | Outpatient (CLI) | payer OTHER | END 2021-04-03 07:40 | disposition home or self-care (01) | LOC: LAB 07:39 | PROVIDERS: ATTEND Obstetrics & Gynecology | DX: Z34.90 Encounter for supervision of normal pregnancy, unspecified, unspecified trimester (principal); Z83.3 Family history of diabetes mellitus | CPT/HCPCS: 36415; 82950 ==

== ENCOUNTER 2021-04-22 16:46 | Outpatient (CLI) | payer OTHER ==
--- NOTE | 2021-04-22 18:42 | XRAY Report ---
PROCEDURE: Hand 3 View RT INDICATIONS: CONTUSION OF R HAND TECHNIQUE: 3 views of the hand(s) acquired. COMPARISON: None FINDINGS: Bones: No fractures or dislocations. No suspicious bony lesions. Soft tissues: No suspicious soft tissue calcifications. IMPRESSION: No evidence of fracture or malalignment. Reviewed by: Moshe Canales MD on 04/22/2021 5:41 PM AKDT Approved by: Moshe Canales MD on 04/22/2021 5:41 PM AKDT Station ID: [id number]
== END 2021-04-22 23:59 | disposition home or self-care (01) ==
LOC: DI.N 16:46
PROVIDERS: ATTEND Nurse Practitioner
DX: S60.221A Contusion of right hand, initial encounter (principal)

== ENCOUNTER 2021-05-31 08:00 | Outpatient (CLI) | payer OTHER ==
[2021-05-31 09:41] LABS: HCT - HEMATOCRIT 30.7 % (37.0-47.0); HGB - HEMOGLOBIN 10.1 g/dL (12.0-16.0); MEAN CORPUSCULAR HEMOGLOBIN 30.6 pg (27.0-31.0); MEAN CORPUSCULAR HGB CONC 32.9 g/dL (32.0-36.0); MEAN PLATELET VOLUME 10.4 fL (7.9-10.8); RED BLOOD COUNT 3.3 10^6/uL (4.20-5.40); RED CELL DISTRIBUTION WIDTH 13.7 % (12.0-15.0); WHITE BLOOD COUNT 16.7 x10^3/uL (4.8-10.8)
[2021-05-31 10:36] LABS: % IRON SATURATION 9 % (20-50); GLUCOSE,1H PP 50GM DOSE 121; IRON 56 ug/dL (28-170); TOTAL IRON BINDING CAPACITY 601 ug/dL (250-450); TRANSFERRIN 429 mg/dL (192-382)
== END 2021-05-31 08:01 | disposition home or self-care (01) ==
LOC: LAB 08:00
PROVIDERS: ATTEND Obstetrics & Gynecology
DX: O99.019 Anemia complicating pregnancy, unspecified trimester (principal)
CPT/HCPCS: 36415; 82728; 82950; 83540; 84466; 85027

== ENCOUNTER 2021-06-05 07:44 | Outpatient (CLI) | payer OTHER ==
[2021-06-05] MEDS ORDERED: FERRIC GLUCONATE 125 MG in SODIUM CHLORIDE 0.9% 100ML 100 ML IV ONE (08:30)
[2021-06-05 10:17] VITALS: BP 115/68
== END 2021-06-05 09:40 | disposition home or self-care (01) ==
LOC: WFO 07:44 → FBP 07:46 → WFO 09:40
PROVIDERS: ATTEND Obstetrics & Gynecology
DX: O99.019 Anemia complicating pregnancy, unspecified trimester (principal); Z3A.00 Weeks of gestation of pregnancy not specified
CPT/HCPCS: 96365; J2916; 99213

== ENCOUNTER 2021-06-13 13:49 | Outpatient (CLI) | payer OTHER ==
[2021-06-13 14:09] VITALS: BP 111/73
[2021-06-13 14:39] LABS: BASOPHILS # (AUTO) 0.1 10^3/uL (0.0-0.1); BASOPHILS % (AUTO) 0.4 %; EOSINOPHILS # (AUTO) 0.1 10^3/uL (0.0-0.7); EOSINOPHILS % (AUTO) 0.4 %; HCT - HEMATOCRIT 32.2 % (37.0-47.0); HGB - HEMOGLOBIN 10.3 g/dL (12.0-16.0); LYMPHOCYTES # (AUTO) 2.3 10^3/uL (1.5-3.5); LYMPHOCYTES % (AUTO) 14.3 %; MEAN CORPUSCULAR HEMOGLOBIN 30.4 pg (27.0-31.0); MEAN PLATELET VOLUME 10.3 fL (7.9-10.8); MONOCYTES # (AUTO) 1.2 10^3/uL (0.0-1.0); MONOCYTES % (AUTO) 7.4 %; NEUTROPHILS % (AUTO) 75.7 %; NRBC ABSOLUTE COUNT (AUTO) 0.02 x10^3/uL; NUCLEATED RED BLOOD CELLS AUTO 0.1 /100WBC; PLT - PLATELET COUNT 291 10^3/uL (130-450); RED BLOOD COUNT 3.39 10^6/uL (4.20-5.40); RED CELL DISTRIBUTION WIDTH 14.6 % (12.0-15.0); WHITE BLOOD COUNT 15.8 x10^3/uL (4.8-10.8)
[2021-06-13 14:56] LABS: ALBUMIN 3.2 g/dL (3.2-5.5); ALBUMIN/GLOBULIN RATIO 0.9 (1.0-2.2); BILIRUBIN,TOTAL 0.5 mg/dL (0.2-1.0); CALCIUM 9.4 mg/dL (8.5-10.3); CREATININE 0.5 mg/dL (0.4-1.0); POTASSIUM 3.9 mmol/L (3.5-5.0); TOTAL PROTEIN 6.8 g/dL (6.7-8.2)
--- NOTE | 2021-06-13 15:13 | PROVIDER PROGRESS NOTE ---
- HPI Chief Complaint: Other (Dizziness occurred at work with blurred vision for 5-7 minutes.) Current : Current EDU 08/18/21 Gestation 30 Weeks and 4 Days 1 Para 0 Vital Signs Temperature 98.6 F 06/13/21 13:55 Heart Rate 84 06/13/21 13:55 Respiratory Rate 20 06/13/21 13:55 Blood Pressure 111/73 06/13/21 13:55 Temperature 98.6 F 06/13/21 13:55 Heart Rate 84 06/13/21 13:55 Respiratory Rate 20 06/13/21 13:55 Blood Pressure 111/73 06/13/21 13:55 O2 Saturation - Exam 26yo G1Po at 30 4/7 weeks presented to Labor and Delivery with an episode of blurred vision and dizziness at work The episode lasted 5-7 minutes. Patient denies history of high blood pressure. Patient had one episode before, but is was much shorter, only lasting a few "moments". Patient has Iron deficiency Anemia and had Iron infusion on 05/31/2021. Patient reports good movement. Patient denies contractions, SROM or vaginal bleeding. Patient denies headache and blurred vision resolved a long time ago. The incident happened at 12:40pm. O- VSS, Afebrile. General: Patient is sitting in reclined position on stretcher in no acute distress. Chest: Clear to auscultation. No rales, wheezes, or rhonchi. Good breath sounds in all [place]. Heart: RRR without murmur or gallop. Abdomen: Soft, non-tender to palpation, gravid. Size is appropriate for dates. Extremities: No edema, no calf tenderness NST: Baseline FHT's 135 with moderate variability with Accelerations 15X15 and no decelerations. No contractions. Reactive NST, Category I monitor strip. CBC WBC is 15.8, HGB is 10.3, HCT is 32.2, Platelets are 291. Electrolytes and all CMP are within normal limits. A-IUP 30 4/7 with Dizziness and Blurred vision, resolved. Iron Deficiency Anemia P- Continue current care plan. Call for any problems. Keep all scheduled appointments. - Procedures OB Procedure Performed: NST Diagnosis/Indication for NST: Other (Dizziness and blurred vision at work.) NST Procedure: NST Procedure Stop Time 09:25 Service Date of procedure: 06/13/21
== END 2021-06-13 15:10 | disposition home or self-care (01) ==
LOC: WFO 13:49 → FBP 13:50 → WFO 15:10
PROVIDERS: ATTEND Obstetrics & Gynecology
DX: O99.891 Other specified diseases and conditions complicating pregnancy (principal); R42 Dizziness and giddiness; H53.8 Other visual disturbances; Z3A.30 30 weeks gestation of pregnancy
CPT/HCPCS: 36415; 80053; 85025; 99213

== ENCOUNTER 2021-07-12 09:30 | Outpatient (CLI) | payer OTHER ==
--- NOTE | 2021-07-12 10:34 | PROVIDER PROGRESS NOTE ---
- HPI Chief Complaint: Leakage of vaginal fluid (Patient presents with complaints of leakage of fluid which she has noted since yesterday. She reports the leakage is mucus-like. She reports occasional contractions. She denies vaginal bleeding. She notes urinary frequency. She denies dysuria. She notes positive movement.) Current : Vital Signs Temperature 99 F 07/12/21 10:04 Heart Rate 95 07/12/21 10:04 Respiratory Rate 18 07/12/21 10:04 Blood Pressure 108/66 07/12/21 10:04 Temperature 99 F 07/12/21 10:04 Heart Rate 95 07/12/21 10:04 Respiratory Rate 18 07/12/21 10:04 Blood Pressure 108/66 07/12/21 10:04 O2 Saturation - Exam General -no acute distress Abdomen- soft, nontender Sterile speculum examcervix visibly closed. Posterior cervix friable with less than 1 cc of blood noted, greenish thick mucus-like discharge. Wet prep and AmniSure sent. No pooling noted. - Procedures OB Procedure Performed: NST Diagnosis/Indication for NST: Other (leakage of fluid) NST Procedure: NST Procedure Start Time 1000 Stop Time 1030 Service Date of procedure: 07/12/21 Findings: heart rate [id number] beats per minutes Moderate variability Accelerations 15 x 15 Decelerations none Contractions rare NST reactive and reassuring - Plan Plan: 26-year-old G1, P0 at 34 weeks 1 day who presents with complaints of vaginal d ischarge. 1. Vaginal dischargethick greenish discharge noted on sterile speculum exam cervix visibly closed. Wet prep urinalysis and AmniSure sent. External monitor reactive and reassuring with rare contractions noted. Labs reviewed urine analysis negative AmniSure negative wet prep with BV Flagyl Rx sent. Patient stable for discharge and labor precautions.
[2021-07-12 11:22] LABS: RUPTURE OF MEMBRANES PLUS NEGATIVE (NEGATIVE)
[2021-07-12 11:26] LABS: BILIRUBIN,URINE NEGATIVE (NEGATIVE); GLUCOSE, URINE (UA) NEGATIVE (NEGATIVE); KETONES,URINE (UA) NEGATIVE (NEGATIVE); LEUKOCYTE ESTERASE, URINE NEGATIVE (NEGATIVE); NITRITE,URINE NEGATIVE (NEGATIVE); OCCULT BLOOD,URINE NEGATIVE (NEGATIVE); PROTEIN,URINE NEGATIVE (NEGATIVE); UROBILINOGEN,URINE 0.2 (NORMAL) E.U./dL (NORMAL)
[2021-07-12 11:30] LABS: CLARITY,URINE CLEAR (CLEAR)
[2021-07-12 11:36] LABS: WBC,URINE 0-3 /HPF (0-5)
[2021-07-12 11:37] LABS: BACTERIA,URINE Few /HPF (None Seen); RBC,URINE None Seen /HPF (0-5); SQUAMOUS EPITHELIAL CELL,UR FEW Squamous (<= Few)
[2021-07-12 13:15] VITALS: BP 114/71
== END 2021-07-12 12:00 | disposition home or self-care (01) ==
LOC: WFO 09:30 → FBP 09:51 → WFO 12:00
PROVIDERS: ATTEND Obstetrics & Gynecology
DX: O23.593 Infection of other part of genital tract in pregnancy, third trimester (principal); B96.89 Other specified bacterial agents as the cause of diseases classified elsewhere; Z3A.34 34 weeks gestation of pregnancy
CPT/HCPCS: 59025; 81001; 84112; 87086; 87210; 99214

== ENCOUNTER 2021-07-24 16:27 | Outpatient (CLI) | payer OTHER | END 2021-07-24 16:28 | disposition home or self-care (01) | LOC: LAB.R 16:27 | PROVIDERS: ATTEND Obstetrics & Gynecology | DX: Z36.85 Encounter for antenatal screening for Streptococcus B (principal) | CPT/HCPCS: 87797 ==

== ENCOUNTER 2021-07-30 12:57 | Outpatient (CLI) | payer OTHER ==
[2021-07-30 13:14] VITALS: BP 127/72
[2021-07-30] MEDS ORDERED: ACETAMINOPHEN 325 MG TABLET PO PRN (13:26)
[2021-07-30 13:47] LABS: BASOPHILS # (AUTO) 0.1 10^3/uL (0.0-0.1); BASOPHILS % (AUTO) 0.5 %; EOSINOPHILS % (AUTO) 0.3 %; HCT - HEMATOCRIT 31.4 % (37.0-47.0); HGB - HEMOGLOBIN 10.5 g/dL (12.0-16.0); LYMPHOCYTES # (AUTO) 2.1 10^3/uL (1.5-3.5); LYMPHOCYTES % (AUTO) 14.8 %; MEAN CORPUSCULAR HEMOGLOBIN 30.7 pg (27.0-31.0); MEAN CORPUSCULAR HGB CONC 33.4 g/dL (32.0-36.0); MEAN CORPUSCULAR VOLUME 91.8 fL (81.0-99.0); MEAN PLATELET VOLUME 10.9 fL (7.9-10.8); MONOCYTES # (AUTO) 1.1 10^3/uL (0.0-1.0); MONOCYTES % (AUTO) 7.5 %; NEUTROPHILS # (AUTO) 10.7 10^3/uL (1.5-6.6); NEUTROPHILS % (AUTO) 75.4 %; PLT - PLATELET COUNT 282 10^3/uL (130-450); RED BLOOD COUNT 3.42 10^6/uL (4.20-5.40); RED CELL DISTRIBUTION WIDTH 14.8 % (12.0-15.0); WHITE BLOOD COUNT 14.1 x10^3/uL (4.8-10.8)
[2021-07-30 13:48] LABS: CREATININE,URINE 74.2 mg/dL; PROTEIN/CREATININE RATIO,URINE 0.1 (<=0.2)
[2021-07-30 13:55] LABS: ALBUMIN 3.1 g/dL (3.2-5.5); ALBUMIN/GLOBULIN RATIO 0.9 (1.0-2.2); BILIRUBIN,TOTAL 0.5 mg/dL (0.2-1.0); CALCIUM 9.6 mg/dL (8.5-10.3); CREATININE 0.6 mg/dL (0.4-1.0); POTASSIUM 3.7 mmol/L (3.5-5.0); TOTAL PROTEIN 6.5 g/dL (6.7-8.2)
--- NOTE | 2021-07-30 14:03 | PROVIDER PROGRESS NOTE ---
- HPI Chief Complaint: Labor Check Current : Vital Signs Temperature 98.8 F 07/30/21 13:05 Heart Rate 91 07/30/21 13:05 Respiratory Rate 16 07/30/21 13:05 Blood Pressure 127/72 07/30/21 13:05 O2 Saturation 100 07/30/21 13:05 Temperature 98.8 F 07/30/21 13:07 Heart Rate 93 07/30/21 13:07 Respiratory Rate 16 07/30/21 13:07 Blood Pressure 127/72 07/30/21 13:07 O2 Saturation 100 07/30/21 13:05 - Procedures OB Procedure Performed: NST NST Procedure: NST Procedure Start Time 09:45 Stop Time 10:30 Findings: Patient is a 26-year-old G1, P0 at 37 weeks 2 days gestation presenting today with a headache. She was concern for preeclampsia as she has been reroute this. She has no leaking or bleeding. Good movement. No abdominal pain or vision changes. Past medical history Denies pertinent history Past surgical history [place] teeth extraction Family history Maternal grandmother: Hypertension, diabetes, stroke Maternal grandfather: Hypertension diabetes Paternal grandmother: Hypertension, diabetes Paternal grandfather: Hypertension, diabetes Social history Denies tobacco, alcohol, drugs Physical Constitutional: alert, no acute distress, well hydrated, well developed, well nourished, appropriate dress. Head: atraumatic, normocephalic. Cardiovascular: RRR. Respiratory: no respiratory distress. Abdomen: Gravid, nondistended, nontender. Neurologic: normal, sensation intact, motor intact. Psych: affect and mood appropriate, normal interaction, good eye contact. FHT: 130 beats per baseline, moderate variability, accelerations present, no decelerations. [place]: 1 contraction Assessment and plan 26-year-old at 37 weeks 2 days gestation with headache 1. Headache: -Unlikely to be preeclampsia. Mild behind the eyes headache. She did notice some increased swelling, but not noted on exam today. -Labs today are normal and not concerning for preeclampsia. Likewise blood pressure is normal. 2. 37 weeks gestation -Discussed labor precautions and kick counts. -Category 1 tracing
== END 2021-07-30 14:45 | disposition home or self-care (01) ==
LOC: WFO 12:57 → FBP 13:00 → WFO 14:45
PROVIDERS: ATTEND Obstetrics & Gynecology
DX: O99.891 Other specified diseases and conditions complicating pregnancy (principal); R51.9 Headache, unspecified; Z3A.37 37 weeks gestation of pregnancy
CPT/HCPCS: 36415; 80053; 82570; 84156; 85025; 99212; A9270

== ENCOUNTER 2021-08-12 11:00 | Inpatient (IN) | payer OTHER ==
[2021-08-12] MEDS ORDERED: miSOPROStoL 200 MCG TABLET PR PRN ×2 (16:32→19:37)
[2021-08-12] MEDS ORDERED: SODIUM CHLORIDE FLUSH 0.9% 10 ML SYRINGE IVP PRN (16:32)
[2021-08-12] MEDS ORDERED: hydrALAZINE INJ 20 MG/ML VIAL IVP PRN (16:32)
[2021-08-12] MEDS ORDERED: CARBOPROST TROMETHAMINE 250 MCG/ML AMP IM PRN ×2 (16:32)
[2021-08-12] MEDS ORDERED: METHYLERGONOVINE 0.2 MG/ML VIAL IM PRN (16:32)
[2021-08-12] MEDS ORDERED: LABETALOL 20 MG/4 ML SYRINGE IVP PRN (16:32)
[2021-08-12] MEDS ORDERED: OXYTOCIN/SODIUM CHLORIDE 500 ML IV PRN ×2 (16:32)
[2021-08-12] MEDS ORDERED: miSOPROStoL 200 MCG TABLET BC PRN (16:32)
[2021-08-12] MEDS ORDERED: OXYTOCIN 10 UNIT/ML VIAL IM PRN (16:32)
[2021-08-12] MEDS ORDERED: TRANEXAMIC ACID IN NACL 1,000 MG/100 ML BAG IV PRN (16:32)
[2021-08-12] MEDS ORDERED: LIDOCAINE-MPF 1% 30 ML VIAL ID PRN (16:32)
[2021-08-12] MEDS ORDERED: NALBUPHINE 10 MG/ML AMP IVP PRN (16:41)
--- NOTE | 2021-08-12 16:44 | HISTORY & PHYSICAL EXAMINATION ---
Admit History - Visit Reason Visit Reason: Other (Elevated blood pressures at term) - : 1 Parity: 0 Care: positive: Other ([facility]) Complications This : positive: None Smoking Status: Never smoker - Mother's Labs Mother's Blood Type: positive: O (+) Mother's RH: positive: Positive GBS: positive: Group B Step Negative Rubella Status: positive: Non-immune - Other Maternal History Other Maternal History: Patient is a 26-year-old G1, P0 at 39 weeks 1 day who presents to clinic for routine visit today. She was found to have elevated blood pressures in the 150s over 90s to 100s. The patient also reported headache. She has had headaches persistently. She was sent to labor and delivery for induction of labor and rule out preeclampsia. Her headache has improved though it is still present. Blood pressures thus far labor and delivery have been within normal limits. Past medical history- none Past surgical history- none Medications- none Allergies- NKDA Labs O+ Rubella immune RPR negative Hep B negative HIV negative GBS negative 1 hour within normal limits Meds/Allgy - Home Medications Home Medications: Ambulatory Orders Medication Instructions Recorded Confirmed HYDROcod/ACETAM 5/325 [[place] 5/325] 1 ea PO Q6H PRN #10 tablet 09/18/20 Ibuprofen [Motrin] 600 mg PO TID PRN #20 tab 09/18/20 metroNIDAZOLE [Flagyl] 500 mg PO BID 7 Days #14 tablet 07/12/21 - Allergies Allergies/Adverse Reactions: Allergies Allergy/AdvReac Type Severity Reaction Status Date / Time No Known Drug Allergies Allergy Verified 03/10/21 06:45 Physical - Abdominal Exam Vital Signs: Temp Pulse Resp BP Pulse Ox 98.4 F 87 20 126/79 08/12/21 16:10 08/12/21 16:10 08/12/21 16:10 08/12/21 16:10 Contraction Frequency (min/apart): 5 - Monitoring Strip Review: positive: Category I - Presentation Presentation: positive: Vertex - Vaginal Exam Membranes: positive: Membranes intact Dilation (in cm): 3 Effacement (%): 50 Station: positive: -2 Cervical Position: positive: Midposition - Speculum Exam Speculum Exam Performed: positive: No Plan for Labor - Plan For Labor Plan for Labor: 26-year-old G1, P0 at 39 weeks 1 day admitted for induction of labor secondary to elevated blood pressures. 1. Induction of laborSVE 3 and -2, Diallo bulb placed using sterile technique, irregular contractions noted. External monitoring reactive and reassuring, Category 1. 2. Elevated blood pressureblood pressure of 150s over 90s to 100s in clinic, blood pressure is currently within normal limits however patient does report headache. Preeclampsia labs pending. 3 Leukocytosis WBC incidentally noted to be 18 on admission, urine analysis pending. Vital signs currently stable and no other evidence of infection. We will continue to monitor.
[2021-08-12] MEDS ORDERED: SODIUM CHLORIDE FLUSH 0.9% 10 ML SYRINGE IVP SCH (17:00)
[2021-08-12] MEDS ORDERED: LACTATED RINGERS 1,000 ML IV SCH (17:00)
[2021-08-12 17:05] LABS: BASOPHILS # (AUTO) 0.1 10^3/uL (0.0-0.1); BASOPHILS % (AUTO) 0.4 %; HCT - HEMATOCRIT 35.4 % (37.0-47.0); HGB - HEMOGLOBIN 11.6 g/dL (12.0-16.0); LYMPHOCYTES # (AUTO) 2.5 10^3/uL (1.5-3.5); LYMPHOCYTES % (AUTO) 13.6 %; MEAN CORPUSCULAR HEMOGLOBIN 30.3 pg (27.0-31.0); MEAN CORPUSCULAR HGB CONC 32.8 g/dL (32.0-36.0); MEAN CORPUSCULAR VOLUME 92.4 fL (81.0-99.0); MEAN PLATELET VOLUME 11.1 fL (7.9-10.8); MONOCYTES # (AUTO) 1.2 10^3/uL (0.0-1.0); MONOCYTES % (AUTO) 6.7 %; NEUTROPHILS # (AUTO) 14.2 10^3/uL (1.5-6.6); NEUTROPHILS % (AUTO) 78.5 %; PLT - PLATELET COUNT 322 10^3/uL (130-450); RED BLOOD COUNT 3.83 10^6/uL (4.20-5.40); RED CELL DISTRIBUTION WIDTH 15.3 % (12.0-15.0)
[2021-08-12 17:10] LABS: CREATININE 0.5 mg/dL (0.4-1.0); URIC ACID 3.9 mg/dL (2.6-7.2)
--- NOTE | 2021-08-12 18:49 | Ultrasound Report ---
PROCEDURE: OB Limited INDICATIONS: Chronic hypertension, anterior placenta OUTSIDE/PRIOR DATING DATA: Last menstrual period (LMP): November 11, 2020. LMP-based estimated date of delivery (KIMBERLY): August 18, 2021. First dating scan (date ): January 09, 2021. Estimated date of delivery (KIMBERLY) from first dating scan: October 14, 2021. TECHNIQUE: Real-time scanning was performed of the fetus, with image documentation. COMPARISON: March 30, 2021. FINDINGS: A single living intrauterine gestation is present. Presentation: Cephalic Placenta: Placental position is anterior, without previa. Amniotic fluid index: 12.4 cm, appropriate for gestational age. heart rate: 127 beats per minutes. Maternal cervical canal: 3.4 cm long; normal length is 2.5 cm or more. Estimated gestational age from initial scan: 39 weeks, 6 days. IMPRESSION: Single intrauterine gestation as detailed above. Reviewed by: Yobany Grant MD on 08/12/2021 6:48 PM PST Approved by: Yobany Grant MD on 08/12/2021 6:48 PM PST Station ID: [id number]
[2021-08-12 19:00] LABS: CREATININE,URINE 136.8 mg/dL; PROTEIN/CREATININE RATIO,URINE 0.1 (<=0.2)
[2021-08-12] MEDS ORDERED: ZOLPIDEM 5 MG TABLET PO PRN (19:53)
[2021-08-12] MEDS: SODIUM CHLORIDE FLUSH 0.9% 10 ML SYRINGE IVP PRN (20:30)
[2021-08-12] MEDS: ONDANSETRON 4 MG/2 ML VIAL IVP PRN (20:32)
[2021-08-13] MEDS: NALBUPHINE 10 MG/ML AMP IVP PRN ×2 (01:42→07:26)
[2021-08-13] MEDS: SODIUM CHLORIDE FLUSH 0.9% 10 ML SYRINGE IVP PRN ×2 (01:45→06:03)
[2021-08-13] MEDS: ONDANSETRON 4 MG/2 ML VIAL IVP PRN ×2 (06:01→18:16)
[2021-08-13 06:32] LABS: BILIRUBIN,URINE NEGATIVE (NEGATIVE); GLUCOSE, URINE (UA) NEGATIVE (NEGATIVE); KETONES,URINE (UA) >=80 mg/dL (NEGATIVE); LEUKOCYTE ESTERASE, URINE NEGATIVE (NEGATIVE); NITRITE,URINE NEGATIVE (NEGATIVE); OCCULT BLOOD,URINE TRACE-INTA (NEGATIVE); PROTEIN,URINE NEGATIVE (NEGATIVE); UROBILINOGEN,URINE 0.2 (NORMAL) E.U./dL (NORMAL)
[2021-08-13 06:53] LABS: BACTERIA,URINE Few /HPF (None Seen); CLARITY,URINE CLEAR (CLEAR); RBC,URINE 0-5 /HPF (0-5); SQUAMOUS EPITHELIAL CELL,UR FEW Squamous (<= Few); WBC,URINE 0-3 /HPF (0-5)
--- NOTE | 2021-08-13 08:17 | PROVIDER PROGRESS NOTE ---
Labor Progress Note - Uterine Monitoring Uterine Monitoring Mode: positive: External toco Contraction Frequency (min/apart): 4-5 - Monitoring Monitor Mode: positive: External ultrasound Heart Rate Baseline: 120 Heart Rate Variability: positive: Moderate (6-25 bmp) Accelerations: positive: Present, 15x15 Decelerations: positive: None Strip Review: positive: Category I - Vaginal Exam Dilation (in cm): 5 Effacement (%): 80 Station: -1 - Labor Progress Note Labor Progress Note/Additional Text: 26-year-old G1, P0 at 39 weeks 2 day admitted for induction of labor secondary to gestational hypertension. 1. Induction of labors/p Diallo bulb placed, regular contractions noted. SVE 5/80 and -1, Desires epidural. Anesthesia notified. External monitoring reactive and reassuring, Category 1. 2. Gestational hypertension- With normal range blood pressures 140s to 150s over 90s to 100s, preeclampsia labs within normal limits. 3 Leukocytosis WBC incidentally noted to be 18 on admission, urine analysis Negative. Vital signs currently stable and no other evidence of infection. We will continue to monitor.
[2021-08-13] MEDS: LACTATED RINGERS 1,000 ML IV SCH ×3 (08:37→11:33)
[2021-08-13] MEDS ORDERED: ROPIVACAINE 0.2% 200 MG/100 ML BAG EP ONE (08:55)
--- NOTE | 2021-08-13 08:56 | ANESTHESIA ---
Pre-Anesthesia VS, & Labs - Diagnosis Active Labor - Procedure Vaginal delivery Vital Signs: Temp Pulse Resp BP Pulse Ox 36.9 C 87 20 126/79 08/12/21 16:10 08/12/21 16:10 08/12/21 16:10 08/12/21 16:10 Height: 5 ft 6 in Weight (kg): 113.398 kg Body Mass Index: 40.3 BMI Classification: Morbidly Obese - NPO Other (clear liquids during labor) - Is Patient ?: Yes - Lab Results Current Lab Results: Laboratory Tests 08/12/21 16:45: ALT 19 08/12/21 16:45: WBC 18.0 H, RBC 3.83 L, Hgb 11.6 L, Hct 35.4 L, MCV 92.4, MCH 30.3, MCHC 32.8, RDW 15.3 H, Plt Count 322, MPV 11.1 H, Neut # (Auto) 14.2 H, Lymph # (Auto) 2.5, [place] # (Auto) 1.2 H, Eos # (Auto) 0.0, Baso # (Auto) 0.1, Absolute Nucleated RBC 0.00, Nucleated RBC % 0.0 08/12/21 16:45: Lactate Dehydrogenase 167 08/12/21 16:45: Blood Type O POSITIVE, Antibody Screen NEGATIVE 08/12/21 16:45: Creatinine 0.5, Estimated GFR (MDRD) 182, Uric Acid 3.9, AST 24 Fish Bones: 08/12/21 16:45 08/12/21 16:45 Home Medications and Allergies Active Medications Carboprost Tromethamine (Carboprost Tromethamine 250 Mcg/Ml Amp) 250 mcg IM Q15M PRN PRN Reason: Step 4: Hemorrhage protocol Stop: 08/17/21 16:36 Hydralazine HCl (Hydralazine Inj 20 Mg/Ml Vial) 10 mg IVP .ONCE PRN; Protocol PRN Reason: Step 9 of Labetalol protocol Stop: 08/17/21 16:36 Tranexamic Acid (Tranexamic 1,000 Mg/100ml-Nacl) 1,000 mg in 100 mls @ 600 mls/hr IV .ONCE PRN PRN Reason: EBL >1200mL and within 3hr Stop: 08/17/21 16:36 Oxytocin/Sodium Chloride (Pitocin/Sodium Chloride) 500 mls @ 999 mls/hr IV PRN PRN; Protocol PRN Reason: POST- HEMORR PREVENTION Lactated Ringer's (Lr) 1,000 mls @ 100 mls/hr IV .Q10H DENISE Last Admin: 08/13/21 08:37 Dose: 100 mls/hr Documented by: Labetalol HCl (Labetalol 20 Mg/4 Ml Syringe) 20 - 80 mg IVP Q10M PRN; Protocol PRN Reason: SBP >160 or DBP >110 Lidocaine HCl (Lidocaine-Mpf 1% 30 Ml Vial) 30 ml ID .ONCE PRN PRN Reason: PERINEAL REPAIR Stop: 08/17/21 16:36 Methylergonovine Maleate (Methylergonovine 0.2 Mg/Ml Vial) 0.2 mg IM .ONCE PRN PRN Reason: Step 2: Hemorrhage protocol Stop: 08/17/21 16:36 Misoprostol (Misoprostol 200 Mcg Tablet) 800 mcg BC .ONCE PRN PRN Reason: Step 3: Hemorrhage protocol Stop: 08/17/21 16:36 Misoprostol (Misoprostol 200 Mcg Tablet) 800 mcg DE ONCE PRN PRN Reason: hemorrhage Stop: 08/13/21 19:36 Nalbuphine HCl (Nalbuphine 10 Mg/Ml Amp) 5 mg IVP Q4H PRN PRN Reason: Abdominal Pain Stop: 08/17/21 16:40 Last Admin: 08/13/21 07:26 Dose: 5 mg Documented by: Ondansetron HCl (Ondansetron 4 Mg/2 Ml Vial) 4 mg IVP Q4HR PRN PRN Reason: Nausea / Vomiting Last Admin: 08/13/21 06:01 Dose: 4 mg Documented by: Oxytocin (Oxytocin 10 Unit/Ml Vial) 10 unit IM .ONCE PRN PRN Reason: Step one: If no IV access Stop: 08/17/21 16:36 Sodium Chloride (Sodium Chloride Flush 0.9% 10 Ml Syringe) 10 ml IVP PRN PRN PRN Reason: NEEDED PER PROVIDER ORDERS Last Admin: 08/13/21 06:03 Dose: 10 ml Documented by: Zolpidem Tartrate (Zolpidem 5 Mg Tablet) 5 mg PO QPM PRN PRN Reason: Insomnia Last Admin: 08/12/21 20:34 Dose: 5 mg Documented by: Allergies/Adverse Reactions: Allergies Allergy/AdvReac Type Severity Reaction Status Date / Time No Known Drug Allergies Allergy Verified 03/10/21 06:45 Anes History & Medical History - Anesthetic History Anesthesia Complications: reports: No previous complications - Medical History Cardiovascular: reports: Hypertension Pulmonary: reports: None Gastrointestinal: reports: None Urinary: reports: None Neuro: reports: None Musculoskeletal: reports: None Endocrine/Autoimmune: reports: None Blood Disorders: reports: None Skin: reports: None Smoking Status: Never smoker Psychosocial: reports: No issues indicated History of Cancer?: No - Surgical History Orthopedic: reports: Arthroscopic surgery (right knee) - Obstetrical History : 1 Parity: 0 Events: reports: induced HTN (admitted for high blood pressures, now b/p in normal range) Complications: reports: None Exam General: Alert, Oriented x3, Cooperative, No acute distress Dental: WNL Mouth Openin Fingerbreadth Neck Mobility: Normal Mallampati classification: III Thyromental Distance: 4-6 cm Mental/Cognitive Status: Alert/Oriented X3, Normal for patient Plan Anesthesia Type: Epidural Consent for Procedure(s) Verified and Reviewed: Yes Code Status: Attempt Resuscitation ASA classification: 2-Mild systemic disease Is this case an emergency?: No
[2021-08-13] MEDS ORDERED: ePHEDrine 50 MG/ML VIAL IVP PRN (09:00)
[2021-08-13] MEDS ORDERED: NALOXONE 0.4 MG/ML VIAL IVP PRN (09:00)
[2021-08-13] MEDS ORDERED: ROPIVACAINE 0.2% 200 MG/100 ML BAG EP PRN (09:00)
[2021-08-13] MEDS: OXYTOCIN/SODIUM CHLORIDE 500 ML IV SCH (10:05)
[2021-08-13] MEDS ORDERED: LACTATED RINGERS 500 ML IV ONE (10:34)
--- NOTE | 2021-08-13 19:51 | PROVIDER PROGRESS NOTE ---
Labor Progress Note - Uterine Monitoring Uterine Monitoring Mode: positive: External toco Contraction Frequency (min/apart): 2 - Monitoring Monitor Mode: positive: External ultrasound Heart Rate Baseline: 140 Heart Rate Variability: positive: Moderate (6-25 bmp) Accelerations: positive: Present, 15x15 Decelerations: positive: None Strip Review: positive: Category I - Vaginal Exam Dilation (in cm): 10 Effacement (%): 100 Station: 1 Cervical Position: Midposition - Labor Progress Note Labor Progress Note/Additional Text: 26-year-old G1, P0 at 39 weeks 2 days admitted for induction of labor. Patient has progressed to complete/ complete/ +1 plan for AROM anticipate vaginal delivery.
[2021-08-13] MEDS: OXYTOCIN/SODIUM CHLORIDE 500 ML IV PRN ×2 (20:31→21:02)
[2021-08-13] MEDS ORDERED: HYDROCORTISONE 1% CREAM 28 GM TUBE PR PRN (21:26)
[2021-08-13] MEDS ORDERED: WITCH HAZEL/GLYCERIN 1 PAD TOP PRN (21:26)
--- NOTE | 2021-08-13 21:35 | DELIVERY NOTE ---
Delivery Note - Labor Labor: positive: Induced by oxytocin - Infant Delivery Method Delivery Method: positive: Spontaneous vaginal delivery - Cervical Ripening Method Cervical Ripening Method: positive: Balloon device, Oxytocin - Presentation Presentation: positive: Vertex, GADIEL - right occiput anterior - Nuchal Cord Nuchal Cord: positive: None - Amniotic Fluid Description Amniotic Fluid Description: positive: Light meconium - Episiotomy Type Episiotomy Type: positive: None - Laceration Laceration: positive: 2nd degree, Perineal - Suture Suture Type: positive: Chromic Suture Size: positive: 2-0 - Delivery Outcome Delivery Outcome: positive: Livebirth - [place] : positive: Placed in direct skin contact with mother, Stimulated sex: positive: Male - Placenta Placenta: positive: Intact - Estimated Blood Loss Estimated Blood Loss (in cc): 200 - Post Delivery Events Post Delivery Events: positive: No post delivery events - Delivery Comments (Free Text/Narrative) Delivery Comments (Free Text/Narrative): This is a 26-year-old G1, P0 at 39 weeks 2 days who was sent for induction of l abor secondary to gestational hypertension. The patient was induced with Diallo bulb and Pitocin. She progressed to complete cervical dilation. Amniotomy was performed just prior to delivery. She was placed in dorsal lithotomy position. The head was delivered with maternal pushing. The anterior shoulder delivered without difficulty followed subsequently by the posterior shoulder and the remai nder of the baby. The cord was doubly clamped and cut and the baby placed on the maternal chest. The senior ecologist was available to assess the baby secondary to meconium noted in the amniotic fluid at time of rupture. A cord segment was obtained for cord gases. Cord blood was obtained. The placenta was delivered with fundal massage. The fundus was noted to be firm. Evaluation of the perineum revealed a second-degree midline perineal laceration. This was repaired using chromic suture in a continuous locking fashion. A saline moistened lap was used to apply pressure to the area to assure hemostasis. A Diallo catheter was placed. The patient remained in stable condition. -Time of [id number] -Time of placenta 2030 -APGARS- 9/9
[2021-08-13] MEDS: IBUPROFEN 800 MG TABLET PO SCH (21:47)
[2021-08-13] MEDS: ACETAMINOPHEN 325 MG TABLET PO PRN (22:10)
[2021-08-13] MEDS ORDERED: CALCIUM CARBONATE CHEW 500 MG TABLET PO PRN (22:45)
[2021-08-14] MEDS: ACETAMINOPHEN 325 MG TABLET PO PRN ×4 (06:07→20:52)
[2021-08-14] MEDS: IBUPROFEN 800 MG TABLET PO SCH ×3 (06:07→18:02)
[2021-08-14 08:36] LABS: BASOPHILS # (AUTO) 0.1 10^3/uL (0.0-0.1); BASOPHILS % (AUTO) 0.3 %; EOSINOPHILS % (AUTO) 0.1 %; HCT - HEMATOCRIT 29.6 % (37.0-47.0); HGB - HEMOGLOBIN 9.8 g/dL (12.0-16.0); LYMPHOCYTES # (AUTO) 2.2 10^3/uL (1.5-3.5); MEAN CORPUSCULAR HEMOGLOBIN 30.6 pg (27.0-31.0); MEAN CORPUSCULAR HGB CONC 33.1 g/dL (32.0-36.0); MEAN CORPUSCULAR VOLUME 92.5 fL (81.0-99.0); MEAN PLATELET VOLUME 10.3 fL (7.9-10.8); MONOCYTES # (AUTO) 1.4 10^3/uL (0.0-1.0); MONOCYTES % (AUTO) 7.2 %; NEUTROPHILS # (AUTO) 16.1 10^3/uL (1.5-6.6); NEUTROPHILS % (AUTO) 80.5 %; PLT - PLATELET COUNT 279 10^3/uL (130-450); RED CELL DISTRIBUTION WIDTH 15.2 % (12.0-15.0)
[2021-08-14] MEDS: DOCUSATE SODIUM 100 MG CAPSULE PO SCH ×2 (10:16→20:51)
[2021-08-14] MEDS: LACTATED RINGERS 1,000 ML IV SCH ×5 (10:17→18:02)
[2021-08-14] MEDS: OXYTOCIN/SODIUM CHLORIDE 500 ML IV SCH (10:35)
--- NOTE | 2021-08-14 14:28 | PROVIDER PROGRESS NOTE ---
Subjective - Prog Note Date Prog Note Date: 08/14/21 Prog Note Time: 14:26 - Subjective Subjective: Patient reports occasional contractions. She reports her bleeding is minimal. She does note leg swelling worse on the left. She notes some ankle discomfort. She is unsure if this is from positioning during delivery. She denies chest pain or shortness of breath. Current Medications - Current Medications Current Medications: Medications Summary Acetaminophen (Acetaminophen 325 Mg Tablet) 650 mg PO Q4HR PRN PRN Reason: PAIN Last Admin: 08/14/21 10:15 Dose: 650 mg Documented by: CROW Acetaminophen Assessment Document 08/14/21 10:15 EM (Rec: 08/14/21 10:16 EM [id number]) Pain or Fever Assessment Pain Scale Used 0-10 Pain Intensity (0-10) 5 Fever No Re-Assess: Acetaminophen Effectiveness Document 08/14/21 11:15 EM (Rec: 08/14/21 12:06 EM [id number]) Effect on Pain or Fever Effective/Ineffective Effective Calcium Carbonate/Glycine (Calcium Carbonate Chew 500 Mg Tablet) 1,000 mg PO BID PRN PRN Reason: Heartburn Last Admin: 08/13/21 23:22 Dose: 1,000 mg Documented by: JOSE Docusate Sodium (Docusate Sodium 100 Mg Capsule) 100 mg PO BID DENISE Last Admin: 08/14/21 10:16 Dose: 100 mg Documented by: CROW Oxytocin/Sodium Chloride (Pitocin/Sodium Chloride) 500 mls @ 999 mls/hr IV PRN PRN; Protocol PRN Reason: POST- HEMORR PREVENTION Last Titration: 08/13/21 23:16 Dose: 0 milliunit/min, 0 mls/hr Documented by: JOSE Medication Titration Document 08/13/21 23:16 MRD (Rec: 08/13/21 23:16 [id number] [id number]) Titration Intake Titration Intake 446.6 Cumulative Intake 446.6 Container Volume 0 Elapsed Time 2h 45m Titration Dosing Titration Dose 0 IV Rate 0 Increase/Decrease Infused Cumulative Dose 56.796 Total Intake (Rx) 946.6 Volume Adjustment/Waste 53.4 Lactated Ringer's (Lr) 1,000 mls @ 100 mls/hr IV .Q10H DENISE Last Admin: 08/14/21 12:07 Dose: Not Given Documented by: CROW Non-Admin Reason: no iv Ropivacaine (Naropin 0.2%) 200 mg in 100 mls @ 0 mls/hr EP PRN PRN; Protocol PRN Reason: PAIN Last Admin: 08/13/21 16:05 Dose: 10 mls/hr Documented by: LIVIER Oxytocin/Sodium Chloride (Pitocin/Sodium Chloride) 500 mls @ 1 mls/hr IV TITR DENISE; Protocol Last Admin: 08/14/21 10:35 Dose: Not Given Documented by: CROW Non-Admin Reason: no iv Lactated Ringer's (Lr) 1,000 mls @ 100 mls/hr IV .Q10H DENISE Last Admin: 08/14/21 10:35 Dose: Not Given Documented by: CROW Non-Admin Reason: no iv Ibuprofen (Ibuprofen 800 Mg Tablet) 800 mg PO Q6H DENISE Last Admin: 08/14/21 12:06 Dose: 800 mg Documented by: CROW Pain Assessment Document 08/14/21 12:06 EM (Rec: 08/14/21 12:06 EM [id number]) Pain Level Pain Scale Used 0-10 Intensity (0-10) 5 Nalbuphine HCl (Nalbuphine 10 Mg/Ml Amp) 5 mg IVP Q4H PRN PRN Reason: Abdominal Pain Stop: 08/17/21 16:40 Last Admin: 08/13/21 07:26 Dose: 5 mg Documented by: LIVIER Pain Assessment Document 08/13/21 07:26 TRICIA (Rec: 08/13/21 07:26 TRICIA [id number]) Pain Level Pain Scale Used 0-10 Intensity (0-10) 7 Re-Assess: Pain Reassessment Document 08/13/21 07:56 TRICIA (Rec: 08/13/21 08:18 TRICIA [id number]) Reassessment Pain Intensity (0-10) 4 Effective/Ineffective Effective Ondansetron HCl (Ondansetron 4 Mg/2 Ml Vial) 4 mg IVP Q4HR PRN PRN Reason: Nausea / Vomiting Last Admin: 08/13/21 18:16 Dose: 4 mg Documented by: LIVIER Re-Assess: General PRN Medication Reasses Document 08/13/21 18:46 TRICIA (Rec: 08/13/21 18:47 TRICIA [id number]) Reassessment Effective/Ineffective Effective Sodium Chloride (Sodium Chloride Flush 0.9% 10 Ml Syringe) 10 ml IVP PRN PRN PRN Reason: NEEDED PER PROVIDER ORDERS Last Admin: 08/13/21 06:03 Dose: 10 ml Documented by: AMAURY Zolpidem Tartrate (Zolpidem 5 Mg Tablet) 5 mg PO QPM PRN PRN Reason: Insomnia Last Admin: 08/12/21 20:34 Dose: 5 mg Documented by: AMAURY Discontinued Medications Lactated Ringer's (Lr) 500 mls @ 999 mls/hr IV ONCE ONE Stop: 08/13/21 11:04 Last Admin: 08/14/21 10:17 Dose: Not Given Documented by: CROW Non-Admin Reason: previous shift Nalbuphine HCl (Nalbuphine 10 Mg/Ml Amp) 5 mg IVP ONCE PRN PRN Reason: Abdominal Pain Stop: 08/17/21 16:40 Last Admin: 08/12/21 20:28 Dose: 5 mg Documented by: AMAURY Pain Assessment Document 08/12/21 20:28 (Rec: 08/12/21 20:29 [id number]) Pain Level Pain Scale Used 0-10 Intensity (0-10) 6 Re-Assess: Pain Reassessment Document 08/12/21 20:43 (Rec: 08/12/21 21:45 [id number]) Reassessment Pain Scale Used 0-10 Pain Intensity (0-10) 1 Effective/Ineffective Effective Objective - Vital Signs/Intake & Output Reviewed Vital Signs: Yes Vital Signs: Vital Signs x48h Temp Pulse Resp BP Pulse Ox 08/14/21 10:05 98.4 F 88 16 116/60 99 Intake & Output: Intake & Output 08/11/21 08/12/21 08/13/21 08/14/21 23:59 23:59 23:59 23:59 Intake Total 2950.466 Output Total 685 600 Balance 2265.466 -600 - Objective General Appearance: positive: No acute distress Eyes Bilateral: positive: Normal inspection Respiratory: positive: No respiratory distress Abdomen: positive: Non-tender, Other (Distended but soft, fundus difficult to palpate secondary to body habitus). negative: Guarding, Rebound - Lab Results Fish Bones: 08/14/21 08:30 08/12/21 16:45 Other Labs: Lab Results x24hrs 08/14/21 Range/Units 08:30 WBC 20.0 H (4.8-10.8) x10^3/uL RBC 3.20 L (4.20-5.40) 10^6/uL Hgb 9.8 L (12.0-16.0) g/dL Hct 29.6 L (37.0-47.0) % MCV 92.5 (81.0-99.0) fL MCH 30.6 (27.0-31.0) pg MCHC 33.1 (32.0-36.0) g/dL RDW 15.2 H (12.0-15.0) % Plt Count 279 (130-450) 10^3/uL MPV 10.3 (7.9-10.8) fL Neut # (Auto) 16.1 H (1.5-6.6) 10^3/uL Lymph # (Auto) 2.2 (1.5-3.5) 10^3/uL [place] # (Auto) 1.4 H (0.0-1.0) 10^3/uL Eos # (Auto) 0.0 (0.0-0.7) 10^3/uL Baso # (Auto) 0.1 (0.0-0.1) 10^3/uL Absolute Nucleated RBC 0.00 x10^3/uL Nucleated RBC % 0.0 /100WBC Assessment/Plan - Problem List (1) state Impression: - 26-year-old G1, P1 day 1 status post spontaneous vaginal delivery. Patient meeting post milestones. Occasional abdominal discomfort. Discussed pain medications. Abdominal binder ordered. Minimal bleeding. Vital signs stable. Anticipate discharge on day 2. (2) Gestational hypertension Impression: Based on mild range blood pressures 140s to 150s at 39 weeks. Preeclampsia labs within normal limits. Urine protein creatinine ratio of 0.1. Currently asymptomatic. Blood pressures currently within normal limits. Patient was given preeclampsia warnings. We will continue to monitor. (3) Leg swelling in Impression: Patient reports left ankle swelling greater than right. She does report some discomfort with movement. On exam left ankle measures 27 cm with nonpitting edema noted. Right ankle measures 24 cm. Denies chest pain or shortness of breath. Lower extremity Dopplers ordered. (4) Leukocytosis Impression: Elevated white count noted. Leukocytosis of 20 from 18 prior to delivery. Currently vital signs stable. Afebrile with no obvious source of infection. Repeat CBC in a.m. We will continue to monitor. (5) Anemia Impression: Hemoglobin of 9.8 from 11.6 prior to delivery. Iron ordered.
[2021-08-14] MEDS: FERROUS SULFATE 325 MG TABLET PO SCH (15:26)
--- NOTE | 2021-08-14 15:51 | Ultrasound Report ---
PROCEDURE: Duplex Ext Veins Left INDICATIONS: Lt leg swelling, . TECHNIQUE: Real-time imaging, as well as color and pulse Doppler interrogation, were performed of the lower extr emity deep veins from the inguinal ligament to the popliteal fossa. COMPARISON: None. FINDINGS: The deep veins are normally compressible, and free of intraluminal thrombus. Color and pu lse Doppler demonstrate normal phasic intraluminal flow. There is normal augmentation response to di stal compression maneuver. IMPRESSION: No evidence of left lower extremity DVT. Reviewed by: Fernando Lockhart MD on 08/14/2021 3:49 PM PST Approved by: Fernando Lockhart MD on 08/14/2021 3:49 PM PST Station ID: [id number]
[2021-08-15] MEDS: IBUPROFEN 800 MG TABLET PO SCH ×2 (00:11→09:19)
[2021-08-15 04:24] VITALS: BP 136/67
--- NOTE | 2021-08-15 05:35 | DISCHARGE SUMMARY ---
Discharge Summary Admit Date: 08/12/21 Condition at Discharge: Good Discharge Disposition: 01 Home, Self Care - DIAGNOSES Admission Diagnoses: Gestational hypertension, 39 weeks gestation Discharge Diagnoses with Status of Each Condition: Same - HOSPITAL COURSE Hospital Course: This is a 26-year-old G1, P1 day 2 status post spontaneous vaginal delivery. The patient was admitted at 39 weeks secondary to gestational hypertension. She ruled out for preeclampsia. She underwent induction of labor with Diallo bulb and Pitocin. She had an uncomplicated spontaneous vaginal deli very. She met milestones and was stable for discharge on day 2. - ALLERGIES Allergies/Adverse Reactions: Allergies Allergy/AdvReac Type Severity Reaction Status Date / Time No Known Drug Allergies Allergy Verified 03/10/21 06:45 - MEDICATIONS Home Medications: Ambulatory Orders Medication Instructions Recorded Confirmed HYDROcod/ACETAM 5/325 [[place] 5/325] 1 ea PO Q6H PRN #10 tablet 09/18/20 Ibuprofen [Motrin] 600 mg PO TID PRN #20 tab 09/18/20 metroNIDAZOLE [Flagyl] 500 mg PO BID 7 Days #14 tablet 07/12/21 - LABS Result Diagrams: 08/14/21 08:30 08/12/21 16:45 - FOLLOW UP Follow Up: Follow-up in 72 hours for blood pressure check with Dr. Rosario.
--- NOTE | 2021-08-15 05:50 | Discharge Plan ---
Discharge Plan Problem Reviewed?: Yes Disposition: Home, Self Care Condition: Good Prescriptions: Acetaminophen [Tylenol] 650 mg PO Q4HR PRN 10 Days #30 tablet PRN Reason: Pain Docusate Sodium 100Mg Capsule [Colace 100Mg Capsule] 100 mg PO BID 10 Days #20 tab Ferrous Sulfate [Feosol] 325 mg PO DAILYWM 30 Days #30 tablet Ibuprofen [Motrin] 800 mg PO Q6H 30 Days #30 tablet Diet: Regular Additional Instructions or Follow Up instructions: Return to ED for persistent headache, vision changes, right upper quadrant pain or epigastric pain. Return to ED for systolic blood pressure equal to or greater than 160 or diastolic blood pressure equal to or greater than 110. Return to ED for heavy vaginal bleeding soaking more than 2 pads in 1 hour. Follow-up in 72 hours for blood pressure check. No Smoking: If you smoke, Please STOP! Call for help. Follow-up with: Bart Rosario MD [Provider Admit Priv/Credential] - 1 Week
[2021-08-15] MEDS: ACETAMINOPHEN 325 MG TABLET PO PRN (09:17)
[2021-08-15] MEDS: FERROUS SULFATE 325 MG TABLET PO SCH (09:18)
[2021-08-15] MEDS: DOCUSATE SODIUM 100 MG CAPSULE PO SCH (09:19)
[2021-08-15 10:39] LABS: RED BLOOD COUNT 3.33 10^6/uL (4.20-5.40); WHITE BLOOD COUNT 14.6 x10^3/uL (4.8-10.8)
[2021-08-15 10:40] LABS: BASOPHILS # (AUTO) 0.1 10^3/uL (0.0-0.1); BASOPHILS % (AUTO) 0.5 %; EOSINOPHILS # (AUTO) 0.1 10^3/uL (0.0-0.7); EOSINOPHILS % (AUTO) 0.6 %; HCT - HEMATOCRIT 31.5 % (37.0-47.0); HGB - HEMOGLOBIN 10.3 g/dL (12.0-16.0); LYMPHOCYTES # (AUTO) 2.5 10^3/uL (1.5-3.5); LYMPHOCYTES % (AUTO) 17.2 %; MEAN CORPUSCULAR HEMOGLOBIN 30.9 pg (27.0-31.0); MEAN CORPUSCULAR HGB CONC 32.7 g/dL (32.0-36.0); MEAN CORPUSCULAR VOLUME 94.6 fL (81.0-99.0); MONOCYTES # (AUTO) 1.2 10^3/uL (0.0-1.0); MONOCYTES % (AUTO) 7.9 %; NEUTROPHILS # (AUTO) 10.6 10^3/uL (1.5-6.6); NEUTROPHILS % (AUTO) 72.6 %; PLT - PLATELET COUNT 322 10^3/uL (130-450); RED CELL DISTRIBUTION WIDTH 15.4 % (12.0-15.0); SLIDE REVIEW? Not Indicated
--- NOTE | 2021-08-15 12:28 | PROVIDER PROGRESS NOTE ---
Subjective - Subjective Pt reports feeling: Improved Subjective: Subjective Patient reports she is doing well. Lochia appropriate. Denies heavy bleeding. Ambulating. Pelvic and abdominal pain well-controlled. Tolerating oral intake. Diet: Regular. Voiding without difficulty. Passing flatus. Denies BM. Patient is bonding with baby in room Breast feeding going well. Denies feeling lightheaded, dizzy or excessively fatigued. Objective Temp Pulse Resp BP Pulse Ox 98.2 F 88 18 136/67 H 100 08/15/21 04:00 08/15/21 04:00 08/15/21 04:00 08/15/21 04:00 08/15/21 04:00 General: Alert, oriented, no apparent distress. Cardiovascular: Regular rate. Regular rhythm. No murmur. Lungs: Clear to auscultation. Good air movement. No crackles or wheezes Abdomen: Uterus firm. Below umbilicus. Normal active bowel sounds. No guarding or rebound. Extremities: Normal pedal pulses. No edema. No cords. Assessment and Plan day 2. -Routine care -Anticipate discharge today -Discussed bleeding and depression Leukocytosis -WBC from 20 to 14 today. Objective - Vital Signs/Intake & Output Intake & Output: Intake & Output 08/12/21 08/13/21 08/14/21 08/15/21 23:59 23:59 23:59 23:59 Intake Total 2950.466 Output Total 685 600 Balance 2265.466 -600 - Lab Results Fish Bones: 08/15/21 06:59 08/12/21 16:45 Other Labs: Lab Results x24hrs 08/15/21 Range/Units 06:59 WBC 14.6 H (4.8-10.8) x10^3/uL RBC 3.33 L (4.20-5.40) 10^6/uL Hgb 10.3 L (12.0-16.0) g/dL Hct 31.5 L (37.0-47.0) % MCV 94.6 (81.0-99.0) fL MCH 30.9 (27.0-31.0) pg MCHC 32.7 (32.0-36.0) g/dL RDW 15.4 H (12.0-15.0) % Plt Count 322 (130-450) 10^3/uL MPV 11.0 H (7.9-10.8) fL Neut # (Auto) 10.6 H (1.5-6.6) 10^3/uL Lymph # (Auto) 2.5 (1.5-3.5) 10^3/uL [place] # (Auto) 1.2 H (0.0-1.0) 10^3/uL Eos # (Auto) 0.1 (0.0-0.7) 10^3/uL Baso # (Auto) 0.1 (0.0-0.1) 10^3/uL Manual Slide Review Not Indicated
--- NOTE | 2021-08-15 14:38 | Labor Flowsheet ---
Labor Flowsheet Datetime Report Generated by CPN: 08/15/2021 14:38 Datetime: 08/15/2021 03:47 VITAL SIGNS NBP Sys/Alee/Mean (mmHg): 136 : 67 : 83 Pulse: 87 Datetime: 08/13/2021 22:16 Temperature (C): 36.8 Temperature Route: Oral PAIN Pain Scale: 3 Pain Type: Cramping Pain Location: Abdomen; Back Pain Relief Measures: Pain Medication Given; Comfort Measures Datetime: 08/13/2021 21:31 Respirations: 19 Datetime: 08/13/2021 21:06 I/O Interventions: Diallo Cath Inserted Patient Care Comments: by MD Datetime: 08/13/2021 20:53 Pain Presence: None/Denies Datetime: 08/13/2021 20:45 Stage of : Recovery Datetime: 08/13/2021 20:38 Stage 2 Comments: perineal repair in progress Datetime: 08/13/2021 20:31 LaborFlag: Labor Datetime: 08/13/2021 20:25 UTERINE ACTIVITY Monitor Mode: External Frequency (min): 2-2.5 Quality: Strong Duration (sec): 50-80 Pattern: Normal: <= 5 Contractions in 10 Minutes Resting Tone (Palpate): Relaxed ASSESSMENT A Monitor Mode: External US Variability: Moderate 6-25 bpm Accelerations: 15X15 Decelerations: Late Comments: not long enough to assess baseline, provider at bedside and aware of FHR Datetime: 08/13/2021 20:20 Pushing Progress: Descent with Pushing Datetime: 08/13/2021 20:15 FHR Baseline Rate : 150 Actions for Decelerations: Provider Notified Category: Category II Datetime: 08/13/2021 20:12 Pushing Position: Pushing with Contractions; Pushing Lithotomy Datetime: 08/13/2021 20:11 STAGE 2 Pushing: Coached on Pushing Datetime: 08/13/2021 20:07 Membrane Status: Ruptured Amniotic Fluid Color: Light Meconium Amniotic Fluid Amount: Moderate Amniotic Fluid Odor: Normal Datetime: 08/13/2021 19:58 Hygiene: Harriet Care; Underpad Changed Datetime: 08/13/2021 19:54 VAGINAL EXAM Dilatation (cm): 10.0 Effacement (%): 100 Exam by: Amagwula Vaginal Bleeding: Normal Show Patient Position/Activity: Right Tilt; Supine Datetime: 08/13/2021 19:51 COMMUNICATION Communication: Provider at Bedside Datetime: 08/13/2021 19:49 Provider Notified (Name): Amagwula Notification Reason: Maternal Vital Sign Change Communication Comments: MD made aware of pt's temp, no orders recieved Datetime: 08/13/2021 19:25 Pain Assessment Comments: states she is aware of ctxs on the top of her abdomen, denies pain/needs MATERNAL ASSESSMENT Level of Consciousness: Alert Headache: Denies Breath Sounds, Left: Clear and Equal Breath Sounds, Right: Clear and Equal Nausea/Vomiting: Denies RUQ Epigastric Pain: Denies Maternal Comments: c/o heartburn, denies nausea ANESTHESIA Anesthesia Plans: Epidural Anesthesia Level Check: T10- Umbilicus TEACHING Instructional Method: Verbal; Patient Instructed; Family/Support Person Instructed; Verbalized Unde rstanding Plan of Care: Plan of Care Discussed; Vaginal Delivery Unit Routine: Stephenson to Room; Call Agosto; Monitoring; Safety/Fall Risk Prevention Labor/Induction: Labor Stages; Interventions; Activity; Pushing Methods Pain Management: Epidural; PRN Medications; Pain Scale/Goals; Comfort Measures Datetime: 08/13/2021 19:19 Monitor Interventions for FHR: Ultrasound Adjusted Datetime: 08/13/2021 19:15 SpO2 (%): 100 Pitocin Checklist: At Least 1 Acceleration of 15 bpm x 15 Seconds in 30 Minutes or Adequate Variabi lity; No More than 1 Late Deceleration Occurred in Past 30 Minutes; No More than 2 Variable Decelerat ions > 60 Seconds in Duration and decreasing >60 bpm in 30 minutes; No More than 5 Uterine Contractio ns in 10 Minutes for any 20 Minute Interval; Uterus Palpates Soft between Contractions Datetime: 08/13/2021 19:00 FHR Baseline Changes: No Baseline Change Datetime: 08/13/2021 18:12 Antiemetics/Antacids: Zofran (mg) @ 4 Datetime: 08/13/2021 16:00 MEDICATIONS Pitocin (milliunits): Increased to @ 10 Datetime: 08/13/2021 10:30 PATIENT CARE IV/Blood Work: IV Bolus Started; IV Bolus Given ml @ 500 Consults: Anesthesia Datetime: 08/13/2021 09:18 Epidural Procedure: Completed Epidural Procedure Other: Pump Started Datetime: 08/13/2021 09:00 Station: -1 Datetime: 08/13/2021 08:58 PROCEDURE TIME OUT Procedure Verify: Correct Patient Identity; Correct Side and Site are Marked; Accurate Procedure Co nsent Form; Agreement on Procedure to be Done; Correct Patient Position Epidural Positioning: Sitting Datetime: 08/13/2021 07:40 Pain Coping: Breathing Through Contractions Analgesics/Sedatives: Nubain (mg) @ 5 Oxygen Method: Room Air Datetime: 08/13/2021 06:39 Pain Goal: 9 DTR's/Clonus: DTRs 2+; No Clonus Related: Hydration Datetime: 08/13/2021 03:48 Monitor Interventions for UA: [place] Adjusted Datetime: 08/13/2021 03:43 Cervix, Position: Posterior Datetime: 08/13/2021 01:35 Cervix, Consistency: Soft Vaginal Exam Comments: Call to DrGabrielle for nubain order updated on status instructed that pt can have e pidural when desires pt does not want epidural at this time Datetime: 08/12/2021 23:30 Nurse Giving Report: Jo V Nurse Receiving Report: Capri Kayli Datetime: 08/12/2021 20:30 BARRIENTOS'S SCORE Consistency: Soft Position: Posterior Datetime: 08/12/2021 18:21 Cervical Ripening Agents: Diallo Balloon Medication Comments: 30mL uterine, 30mL vaginal; traction applied
== END 2021-08-15 14:06 | disposition home or self-care (01) | DRG 807 ==
LOC: FBP 11:47 → UNDOADMOB 11:47 → OBSVTOIN 15:58 → FBP 15:58
PROVIDERS: ADMIT Obstetrics & Gynecology; ATTEND Obstetrics & Gynecology
PROC: 0U7C7ZZ Dilation of Cervix, Via Natural or Artificial Opening (ICD-10-PCS; 2021-08-12)
PROC: 3E033VJ Introduction of Other Hormone into Peripheral Vein, Percutaneous Approach (ICD-10-PCS; 2021-08-12)
PROC: 10907ZC Drainage of Amniotic Fluid, Therapeutic from Products of Conception, Via Natural or Artificial Opening (ICD-10-PCS; principal; 2021-08-13)
PROC: 10E0XZZ Delivery of Products of Conception, External Approach (ICD-10-PCS; 2021-08-13)
PROC: 0KQM0ZZ Repair Perineum Muscle, Open Approach (ICD-10-PCS; 2021-08-13)
DX: O13.4 Gestational [pregnancy-induced] hypertension without significant proteinuria, complicating childbirth (principal); Z37.0 Single live birth; O77.0 Labor and delivery complicated by meconium in amniotic fluid; O70.1 Second degree perineal laceration during delivery; Z3A.39 39 weeks gestation of pregnancy; O75.89 Other specified complications of labor and delivery; D72.829 Elevated white blood cell count, unspecified; R22.43 Localized swelling, mass and lump, lower limb, bilateral; O90.81 Anemia of the puerperium; D64.9 Anemia, unspecified
CPT/HCPCS: 36415; 76815; 81001; 82565; 82570; 83615; 84156; 84450; 84460; 84550; 85025; 86850; 86900; 86901; 93971; A9270; J2300; J7120; 86762; 87086; 87340; 87389

== ENCOUNTER 2021-09-18 08:00 | Outpatient (CLI) | payer OTHER ==
[2021-09-18 23:10] LABS: BACTERIAL VAGINOSIS DNA POSITIVE (NEGATIVE); CANDIDA GLABRATA DNA NEGATIVE (NEGATIVE); CANDIDA GROUP DNA NEGATIVE (NEGATIVE); CANDIDA KRUSEI DNA NEGATIVE (NEGATIVE); TRICHOMONAS VAGINALIS DNA NEGATIVE (NEGATIVE)
== END 2021-09-18 23:59 ==
LOC: LAB 08:00
PROVIDERS: ATTEND Obstetrics & Gynecology
DX: N76.0 Acute vaginitis (principal)
CPT/HCPCS: 87661; 87801

== ENCOUNTER 2022-01-22 08:00 | Outpatient (CLI) | payer OTHER | END 2022-01-22 23:59 | disposition home or self-care (01) | LOC: LAB.N 08:00 | PROVIDERS: ATTEND Registered Nurse | DX: L02.412 Cutaneous abscess of left axilla (principal); L73.2 Hidradenitis suppurativa | CPT/HCPCS: 87070; 87205 ==

== ENCOUNTER 2022-03-09 18:13 | Emergency (ER) | payer OTHER ==
[2022-03-09 18:19] VITALS: BP 155/64
[2022-03-09] MEDS ORDERED: oxyCODONE/ACET 5/325 Prepack 4 PO STA (18:32)
[2022-03-09] MEDS ORDERED: IBUPROFEN 800 MG TABLET PO STA (18:32)
[2022-03-09] MEDS ORDERED: BACITRACIN ZINC OINT 1 PACKET TOP STA (18:32)
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
== END 2022-03-09 18:49 | disposition home or self-care (01) ==
LOC: ED 18:13
DX: T20.26XA Burn of second degree of forehead and cheek, initial encounter (principal); T20.24XA Burn of second degree of nose (septum), initial encounter; T31.0 Burns involving less than 10% of body surface; X10.1XXA Contact with hot food, initial encounter; Y93.89 Activity, other specified
CPT/HCPCS: 99282; A9270

== ENCOUNTER 2022-05-01 12:21 | Emergency (ER) | payer OTHER ==
[2022-05-01] MEDS ORDERED: KETOROLAC 60 MG/2 ML VIAL IM STA (12:43)
[2022-05-01 13:25] LABS: BILIRUBIN,URINE NEGATIVE (NEGATIVE); GLUCOSE, URINE (UA) NEGATIVE (NEGATIVE); KETONES,URINE (UA) NEGATIVE (NEGATIVE); LEUKOCYTE ESTERASE, URINE NEGATIVE (NEGATIVE); NITRITE,URINE NEGATIVE (NEGATIVE); OCCULT BLOOD,URINE MODERATE (NEGATIVE); PROTEIN,URINE NEGATIVE (NEGATIVE); UROBILINOGEN,URINE 0.2 (NORMAL) E.U./dL (NORMAL)
[2022-05-01 13:29] LABS: CLARITY,URINE CLEAR (CLEAR); HCG UR QUAL NEGATIVE
[2022-05-01 13:37] LABS: BACTERIA,URINE Few /HPF (None Seen); RBC,URINE TNTC /HPF (0-5); SQUAMOUS EPITHELIAL CELL,UR FEW Squamous (<= Few); WBC,URINE 0-3 /HPF (0-5)
--- NOTE | 2022-05-01 15:05 | ED Physician Documentation ---
PD HPI FEMALE - Stated complaint Stated Complaint: FEMALE - Chief complaint Chief Complaint: General - History obtained from History obtained from: Patient - History of Present Illness Timing - onset: Today Timing - duration: Hours Timing - details: Abrupt onset, Still present Associated symptoms: Abdominal pain, Pelvic pain, Vaginal bleeding Contributing factors: IUD Similar symptoms before: Has not had sx before Recently seen: Other (IUD placed 2 wks ago) - Additional information Additional information: 27-year-old Gianfranco Prieto has had an IUD placed 2 weeks ago and she tolerated this well and today began to have menstruation with excessive bleeding and severe cramping. She has never had cramping with her menstruation and she has never had excessive bleeding. She comes into the emerge department wanting to have her IUD removed. She presents in some distress secondary to pain. Review of Systems Constitutional: denies: Fever Ears: denies: Ear pain Nose: denies: Congestion Throat: denies: Sore throat Cardiac: denies: Chest pain / pressure, Palpitations Respiratory: denies: Dyspnea, Cough GI: reports: Abdominal Pain. denies: Nausea, Vomiting, Diarrhea : reports: Vaginal bleeding. 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 : None HEENT: None Psych: None Musculoskeletal: None Derm: None - Past Surgical History Past Surgical History: No Ortho: Arthroscopic surgery - Present Medications Home Medications: Ambulatory Orders Medication Instructions Recorded Confirmed HYDROcod/ACETAM 5/325 [[place] 5/325] 1 ea PO Q6H PRN #10 tablet 09/18/20 metroNIDAZOLE [Flagyl] 500 mg PO BID 7 Days #14 tablet 07/12/21 Acetaminophen [Tylenol] 650 mg PO Q4HR PRN 10 Days #30 08/15/21 tablet Docusate Sodium 100Mg Capsule 100 mg PO BID 10 Days #20 tab 08/15/21 [Colace 100Mg Capsule] Ferrous Sulfate [Feosol] 325 mg PO DAILYWM 30 Days #30 08/15/21 tablet Ibuprofen [Motrin] 800 mg PO Q6H 30 Days #30 tablet 12/16/21 Bacitracin Zinc Oint 1 applic TOP BID #1 gm 03/09/22 Oxycodone HCl/Acetaminophen 1 - 2 each PO Q6H PRN #14 tablet 03/09/22 [Percocet 5-325 mg Tablet] - Allergies Allergies/Adverse Reactions: Allergies Allergy/AdvReac Type Severity Reaction Status Date / Time No Known Drug Allergies Allergy Verified 05/01/22 12:23 - Social History Does the pt smoke?: No Smoking Status: Never smoker Does the pt drink ETOH?: Yes Does the pt have substance abuse?: No - Immunizations Immunizations are current?: Yes - POLST Patient has POLST: No PD ED PE NORMAL - Vitals Vital signs reviewed: Yes (Hypertensive) - General General: Alert and oriented X 3, Well developed/nourished, Other (27-year-old female appears to be in pain clutching her lower abdomen) - HEENT HEENT: Atraumatic, PERRL, EOMI - Neck Neck: Supple, no meningeal sign - Cardiac Cardiac: RRR, No murmur - Respiratory Respiratory: No respiratory distress, Clear bilaterally - Abdomen Abdomen: Normal bowel sounds, Soft, Non distended, No organomegaly, Other (Mild right lower quadrant tenderness to palpation without guarding or rebound tenderness) - Back Back: No CVA TTP, No spinal TTP - Derm Derm: Normal color, Warm and dry, No rash - Extremities Extremities: No deformity, Normal ROM s pain, No edema - Neuro Neuro: Alert and oriented X 3, conductor/brakeman 2-12 intact, No motor deficit, No sensory deficit, Normal speech Eye Opening: Spontaneous Motor: Obeys Commands Verbal: Oriented GCS Score: 15 - Psych Psych: Normal mood, Normal affect Results - Vitals Vitals: Vital Signs - 24 hr 05/01/22 05/01/22 12:23 15:08 Temperature 36.5 C Heart Rate 71 72 Respiratory 16 14 Rate Blood Pressure 145/90 H 152/83 H O2 Saturation 100 100 Oxygen O2 Source Room air - Labs Labs: Laboratory Tests 05/01/22 13:15 Urine Color YELLOW Urine Clarity CLEAR Urine pH 6.0 Ur Specific [place] 1.020 Urine Protein NEGATIVE Urine Glucose (UA) NEGATIVE Urine Ketones NEGATIVE Urine Occult Blood MODERATE H Urine Nitrite NEGATIVE Urine Bilirubin NEGATIVE Urine Urobilinogen 0.2 (NORMAL) Ur Leukocyte Esterase NEGATIVE Urine RBC TNTC H Urine WBC 0-3 Ur Squamous Epith Cells FEW Squamous Urine Bacteria Few Ur Microscopic Review INDICATED Urine Culture Comments NOT INDICATED Urine HCG, Qual NEGATIVE - Rads (name of study) Pelvic ultrasound Radiology: Prelim report reviewed (Impression: 1. An IUD is present in the uterine cavity without definitive evidence of malposition. Unremarkable sonographic appearance of the ovaries.), EMP read indepedently, See rad report Procedures - General procedure General procedure: Removal of IUD: With the patient in the dorsolithotomy position speculum was placed, blood present at the cervix, strings were easily visible and the IUD removed intact without significant effort and without pain to the patient. PD MEDICAL DECISION MAKING - ED course Complexity details: reviewed results, re-evaluated patient, considered differential, d/w patient ED course: 27-year-old female who reports the emergency department wanting to have her IUD removed secondary to painful menstruation. I discussed options with the patient and she reiterated that she does not want her IUD removed. She was thankful after it was removed.I did teacher counselor the patient on the need for alternative control and asked her to follow-up with her ROOFING APPLICATOR doctor at [facility]. Departure - Departure Disposition: 01 Home, Self Care Clinical Impression: Encounter for IUD removal IUD complication Qualifiers: Device complication type: unspecified Encounter type: initial encounter Darío lified Code(s): T83.9XXA - Unspecified complication of genitourinary prosthetic device, implant and graft, initial encounter Condition: Stable Instructions: Control Options, Control IUD Follow-Up: [facility] [Provider Group] Comments: Gianfranco, today it looks like your IUD was in the correct position but was causing significant pain and discomfort. We have removed the device and it came out entirely intact. We are expecting resolution of your symptoms. You still may have a more significant menstruation than normal. You are not protected against currently. Follow-up with your ROOFING APPLICATOR doctor about alternative forms of control. Abstain or use protection until your follow-up. Discharge Date/Time: 05/01/22 15:13
[2022-05-01 15:09] VITALS: BP 152/83
--- NOTE | 2022-05-01 15:20 | Ultrasound Report ---
PROCEDURE: Pelvic w/Transvag+Doppler Comp INDICATIONS: pelvic pain, R IUD recent TECHNIQUE: Real-time scanning was performed of the pelvic organs, with image documentation. Additional endovagi nal scanning was necessary due to incomplete visualization of the adnexal and endometrial structures by transabdominal scanning. Doppler interrogation was performed of the ovaries bilaterally. COMPARISON: None. FINDINGS: Uterus: Retroverted. Uterus is normal in size at 9.0 x 4.1 x 5.3 cm. The endometrium measures 4 mm i n combined thickness. An IUD is present in the uterine cavity without definite evidence of malpositi on. Ovaries: Right ovary measures 3.3 x 1.5 x 2.2 cm. Left ovary measures 1.8 x 2.2 x 1.5 cm. Both ovari es are unremarkable in appearance. Normal appearing arterial and venous waveforms are confirmed to ea ch ovary.] Other: Trace free pelvic fluid, likely physiologic. IMPRESSION: 1. An IUD is present in the uterine cavity without definite evidence of malposition. 2. Unremarkable sonographic appearance of the ovaries. Reviewed by: Kike Thompson MD on 05/01/2022 3:19 PM PDT Approved by: Kike Thompson MD on 05/01/2022 3:19 PM PDT Station ID: [id number]
== END 2022-05-01 15:13 | disposition home or self-care (01) ==
LOC: ED 12:21
DX: T83.9XXA Unspecified complication of genitourinary prosthetic device, implant and graft, initial encounter (principal); Z30.432 Encounter for removal of intrauterine contraceptive device
CPT/HCPCS: 81001; 81003; 81025; 87086; 93975; 96372; 99282; 99284

== ENCOUNTER 2022-05-03 08:00 | Outpatient (CLI) | payer OTHER ==
[2022-05-03 19:10] LABS: BASOPHILS # (AUTO) 0.1 10^3/uL (0.0-0.1); BASOPHILS % (AUTO) 0.9 %; EOSINOPHILS # (AUTO) 0.1 10^3/uL (0.0-0.7); HCT - HEMATOCRIT 34.9 % (37.0-47.0); HGB - HEMOGLOBIN 11.3 g/dL (12.0-16.0); LYMPHOCYTES # (AUTO) 2.7 10^3/uL (1.5-3.5); LYMPHOCYTES % (AUTO) 32.9 %; MEAN CORPUSCULAR HEMOGLOBIN 29.7 pg (27.0-31.0); MEAN CORPUSCULAR HGB CONC 32.4 g/dL (32.0-36.0); MEAN CORPUSCULAR VOLUME 91.6 fL (81.0-99.0); MEAN PLATELET VOLUME 10.9 fL (7.9-10.8); MONOCYTES # (AUTO) 0.5 10^3/uL (0.0-1.0); MONOCYTES % (AUTO) 6.1 %; NEUTROPHILS # (AUTO) 4.8 10^3/uL (1.5-6.6); NEUTROPHILS % (AUTO) 58.9 %; PLT - PLATELET COUNT 421 10^3/uL (130-450); RED BLOOD COUNT 3.81 10^6/uL (4.20-5.40); RED CELL DISTRIBUTION WIDTH 13.3 % (12.0-15.0); WHITE BLOOD COUNT 8.1 x10^3/uL (4.8-10.8)
[2022-05-03 19:46] LABS: HCG,QUALITATIVE BLOOD NEGATIVE
== END 2022-05-03 23:59 | disposition home or self-care (01) ==
LOC: LAB.N 08:00
PROVIDERS: ATTEND Physician Assistant Medical
DX: N93.9 Abnormal uterine and vaginal bleeding, unspecified (principal)
CPT/HCPCS: 36415; 84703; 85025